=== PATIENT | female | born 1945 | race Caucasian/White ===

== ENCOUNTER 2018-12-31 12:26 | Emergency (ER) | payer OTHER ==
[~2018-12-31] VITALS: Ht 157.5 cm; Wt 54.4 kg
[~2018-12-31 12:26] MED LIST: ASPI-264 PO; GABA100C PO; HYDR4TAB21 PO; LOVA40TA72 PO; SUMA100T2 PO
[2018-12-31 15:11] VITALS: BP 194/95
[2018-12-31] MEDS ORDERED: MORPHINE SULFATE 4 MG/ML SYR/VIAL IV ONE (15:15)
== END 2018-12-31 15:37 | disposition short-term general hospital (02) ==
LOC: EDBD 12:26 → ER 12:31
DX: S02.609A Fracture of mandible, unspecified, initial encounter for closed fracture (principal); I48.91 Unspecified atrial fibrillation; E78.5 Hyperlipidemia, unspecified; Z90.710 Acquired absence of both cervix and uterus; Z88.6 Allergy status to analgesic agent; Z88.1 Allergy status to other antibiotic agents; Z88.8 Allergy status to other drugs, medicaments and biological substances; Z79.82 Long term (current) use of aspirin; Z79.899 Other long term (current) drug therapy; Z86.73 Personal history of transient ischemic attack (TIA), and cerebral infarction without residual deficits; Z90.49 Acquired absence of other specified parts of digestive tract; W18.39XA Other fall on same level, initial encounter; Y93.89 Activity, other specified; Y99.8 Other external cause status; Y92.89 Other specified places as the place of occurrence of the external cause
CPT/HCPCS: 70450; 70486; 72170; 93005; 96374; 99285; J2270

== ENCOUNTER 2019-05-07 14:34 | Emergency (ER) | payer OTHER ==
[~2019-05-07] VITALS: Ht 165.1 cm; Wt 52.2 kg
[2019-05-07 15:02] VITALS: BP 136/81
[2019-05-07] MEDS ORDERED: SODIUM CHLORIDE 0.9% 500 ML IVB ONE (15:18)
[2019-05-07 17:38] LABS: Basophils # (auto) 0.1 uL; Basophils % (auto) 1.1 % (0.0-2.0); Eosinophils # (auto) 0.1 uL; Eosinophils % (auto) 1.4 % (0.0-7.0); Hematocrit 44.7 % (36.0-46.0); Hemoglobin 14.3 g/dL (12.2-16.2); Lymphocytes # (auto) 1.6 uL; Lymphocytes % (auto) 18.8 % (10.0-50.0); Mean Corpuscular Hemoglobin 28.4 pg (28.0-32.0); Mean Corpuscular Volume 88.7 fL (80.0-100.0); Monocytes # (auto) 0.6 uL; Monocytes % (auto) 6.9 % (0.0-12.0); Neutrophils % (auto) 71.8 % (37.0-80.0); Nucleated Red Blood Cells % 0.1 %; Platelet Count (auto) 262 10^3/uL (140-450); Red Blood Cells 5.04 10^6/uL (4.0-5.20); Red Cell Distribution Width 15.7 % (11.8-14.3); White Blood Cell 8.4 10^3/uL (4.4-10.8)
[2019-05-07 18:01] LABS: Albumin 3.3 g/dL (3.4-5.0); BUN/Creatinine Ratio 19.7; Calcium 8.5 mg/dL (8.5-10.1); Potassium 3.8 mmol/L (3.5-5.1)
[2019-05-07 18:04] LABS: Bilirubin, Total 0.3 mg/dL (0.2-1.0); Total Protein 7.2 g/dL (6.4-8.2)
== END 2019-05-07 21:50 | disposition left against medical advice (07) ==
LOC: EDUNIT# 14:34 → ER 14:34 → EDBD 14:34 → ER 21:48
DX: R10.31 Right lower quadrant pain (principal); R19.7 Diarrhea, unspecified; E78.5 Hyperlipidemia, unspecified; Z90.49 Acquired absence of other specified parts of digestive tract; Z90.710 Acquired absence of both cervix and uterus; Z87.440 Personal history of urinary (tract) infections; Z86.73 Personal history of transient ischemic attack (TIA), and cerebral infarction without residual deficits
CPT/HCPCS: 36415; 74176; 80053; 83690; 85025; 93005; 96360; 99284; J7030

== ENCOUNTER 2019-06-07 09:38 | Inpatient (IN) | payer OTHER ==
[~2019-06-07] VITALS: Ht 180.3 cm; Wt 56.0 kg
[~2019-06-07 09:38] MED LIST changes: +GABA-339 PO; -GABA100C PO; -HYDR4TAB21 PO; +LEVO500T21 PO; +MECL-87 PO; +METR500T PO; +OXYB5TAB61
[2019-06-07] MEDS ORDERED: MORPHINE SULFATE 4 MG/ML SYR/VIAL IV ONE (11:00)
[2019-06-07] MEDS ORDERED: ONDANSETRON HCL 4 MG/2 ML VIAL IV ONE (11:00)
[2019-06-07 11:11] LABS: Basophils # (auto) 0 uL; Basophils % (auto) 0.7 % (0.0-2.0); Eosinophils # (auto) 0.1 uL; Eosinophils % (auto) 0.9 % (0.0-7.0); Hemoglobin 13.7 g/dL (12.2-16.2); Lymphocytes # (auto) 1.1 uL; Lymphocytes % (auto) 15.1 % (10.0-50.0); Mean Corpuscular Hemoglobin 28.8 pg (28.0-32.0); Mean Corpuscular Hgb Conc. 32.6 g/dL (32.0-36.0); Mean Corpuscular Volume 88.4 fL (80.0-100.0); Monocytes # (auto) 0.6 uL; Monocytes % (auto) 8.1 % (0.0-12.0); Neutrophils # (auto) 5.5 uL; Neutrophils % (auto) 75.2 % (37.0-80.0); Platelet Count (auto) 215 10^3/uL (140-450); Red Blood Cells 4.75 10^6/uL (4.0-5.20); Red Cell Distribution Width 14.5 % (11.8-14.3); White Blood Cell 7.3 10^3/uL (4.4-10.8)
[2019-06-07 11:28] LABS: Albumin 3.1 g/dL (3.4-5.0); Anion Gap 7 (5-15); Blood Urea Nitrogen 10 mg/dL (7-18); Calcium 8.9 mg/dL (8.5-10.1); Carbon Dioxide 23 mmol/L (21-32); Chloride 114 mmol/L (98-107); Potassium 3.8 mmol/L (3.5-5.1); Sodium 144 mmol/L (136-145)
[2019-06-07 11:36] LABS: Alanine Aminotransferase 16 U/L (13-56); Alkaline Phosphatase 64 U/L (45-117); Aspartate Aminotransferase 15 U/L (15-37); BUN/Creatinine Ratio 14.3; Bilirubin, Total 0.6 mg/dL (0.2-1.0); GFR African American 105 mL/min; GFR Non-African American 87 mL/min; Glucose 101 mg/dL (74-106); Total Protein 6.5 g/dL (6.4-8.2)
[2019-06-07 12:43] LABS: INR 1.15 (0.9-1.15)
[2019-06-07] MEDS ORDERED: metroNIDAZOLE 500 MG TAB PO ONE (17:00)
[2019-06-07] MEDS ORDERED: SOD CHL 0.45% 1,000 ML IV ONE (18:30)
[2019-06-07] MEDS ORDERED: NITROGLYCERIN 0.4 MG SL TAB SL PRN (18:30)
[2019-06-07] MEDS ORDERED: MORPHINE SULF INJ 2 MG/ML SYRINGE 1ML IV PRN ×4 (18:30→18:45)
[2019-06-07 20:23] VITALS: BP 154/70
--- NOTE | 2019-06-07 20:23 | NUR ---
MS admit from ER WILBERT,HUMBERTO Mack admitted to tele/MS after SBAR received. Patient oriented to GABE MCNEIL RN primary RN, unit, room, bed, and unit policies regarding patient care and visiting hours. No s/s of distress or SOB noted upon arrival. Patient denies pain at this time. Bed locked and left in the lowest position with the side rails up x2. Call light left within reach. Patient weighed by bedscale and encouraged to call if they need something. All questions and concerns addressed, patient verbalized understanding. Will continue to monitor q 1hr and PRN.
[2019-06-07 22:28] VITALS: BP 112/64
[2019-06-07] MEDS: metroNIDAZOLE 500MG/100ML 100 ML IV SCH (22:44)
[2019-06-07] MEDS: traMADol HCL 50 MG TAB PO PRN (22:54)
[2019-06-08 04:38] VITALS: BP 109/62
[2019-06-08] MEDS: metroNIDAZOLE 500MG/100ML 100 ML IV SCH ×3 (06:24→22:04)
[2019-06-08] MEDS: GABAPENTIN 300 MG CAP PO SCH ×3 (06:24→22:05)
--- NOTE | 2019-06-08 08:00 | NUR ---
Opening Shift Note Assumed care of patient, awake, alert and oriented. No S/S of distress/SOB or pain. Bed in lowest/locked position, bed rails up x2. Instructed on POC and to call for assist PRN, will continue to monitor for changes Q1hr and PRN.
[2019-06-08 09:00] VITALS: BP 118/67
[2019-06-08] MEDS: PANTOPRAZOLE 40 MG TAB PO SCH (09:04)
[2019-06-08] MEDS: cefTRIAXone 1GM/50ML D5W 50 ML IV SCH (09:04)
--- NOTE | 2019-06-08 11:42 | NUR ---
ARCENIO KENT RE: PATIENT HOME MEDICATION FOR MIGRAINES. LEFT MESSAGE AWAITING RETURN PHONE CALL
[2019-06-08 13:00] VITALS: BP 120/72
[2019-06-08] MEDS ORDERED: POLYETHYLENE GLYCOL 17 GM PWDR PO ONE (13:00)
[2019-06-08] MEDS ORDERED: SUMAtriptan SUCCINATE 25 MG TAB PO PRN (13:00)
[2019-06-08 17:00] VITALS: BP 141/77
--- NOTE | 2019-06-08 19:23 | NUR ---
Opening Shift Note Report received from day shift RN. Assumed care of patient, awake sitting in bed and A&O x4. No S/S of distress/SOB noted and denies pain at this time. Bed locked and in the lowest position with side rails up x2 and call light left within reach. Instructed on POC and to call for assist PRN, will continue to monitor for changes Q1hr and PRN.
--- NOTE | 2019-06-08 20:50 | NUR ---
IV removal IV TO RIGHT FOREARM DC'd with clean sterile technique, catheter fully intact. Pressure dressing applied to site. Patient tolerated well. IV insertion NEW IV access obtained, via clean sterile technique by inserting 20 gauge catheter at THE LEFT WRIST after 1 attempt(s). IV secured properly. No trauma to site. Patient tolerated well.
[2019-06-08 22:00] VITALS: BP 145/75
[2019-06-08] MEDS: DOCUSATE SOD 100 MG CAP PO SCH (22:00)
[2019-06-09 04:30] VITALS: BP 113/64
[2019-06-09] MEDS: metroNIDAZOLE 500MG/100ML 100 ML IV SCH ×2 (06:32→13:46)
[2019-06-09] MEDS: GABAPENTIN 300 MG CAP PO SCH ×2 (06:33→13:46)
[2019-06-09 06:48] LABS: Basophils # (auto) 0 uL; Basophils % (auto) 0.7 % (0.0-2.0); Eosinophils # (auto) 0.2 uL; Eosinophils % (auto) 3.2 % (0.0-7.0); Hematocrit 38.5 % (36.0-46.0); Hemoglobin 12.5 g/dL (12.2-16.2); Lymphocytes # (auto) 1.2 uL; Lymphocytes % (auto) 22.2 % (10.0-50.0); Mean Corpuscular Hemoglobin 28.5 pg (28.0-32.0); Mean Corpuscular Hgb Conc. 32.4 g/dL (32.0-36.0); Mean Corpuscular Volume 88.1 fL (80.0-100.0); Monocytes # (auto) 0.5 uL; Monocytes % (auto) 9.5 % (0.0-12.0); Neutrophils # (auto) 3.3 uL; Neutrophils % (auto) 64.4 % (37.0-80.0); Platelet Count (auto) 197 10^3/uL (140-450); Red Blood Cells 4.37 10^6/uL (4.0-5.20); Red Cell Distribution Width 14.1 % (11.8-14.3); White Blood Cell 5.2 10^3/uL (4.4-10.8)
[2019-06-09 07:06] LABS: Calcium 8.1 mg/dL (8.5-10.1); Potassium 3.4 mmol/L (3.5-5.1)
[2019-06-09 07:09] LABS: BUN/Creatinine Ratio 10.3
[2019-06-09 09:00] VITALS: BP 134/75
[2019-06-09] MEDS: cefTRIAXone 1GM/50ML D5W 50 ML IV SCH (09:13)
[2019-06-09] MEDS: DOCUSATE SOD 100 MG CAP PO SCH (09:13)
[2019-06-09] MEDS: PANTOPRAZOLE 40 MG TAB PO SCH (09:14)
--- NOTE | 2019-06-09 10:12 | NUR ---
I faxed SNF placement order to [facility].
--- NOTE | 2019-06-09 12:54 | NUR ---
Discharge planning per consult, patient has orders for a home health evaluation. Referral faxed to [facility] manager case [facility]-[phone], and to [facility] [phone].
[2019-06-09 13:00] VITALS: BP 163/70
--- NOTE | 2019-06-09 14:17 | NUR ---
I called [facility] Service Representative Daily [phone] and left message to discuss discharge planning/SNF order.
[2019-06-09] MEDS ORDERED: LIDOCAINE 5% TOPICAL PATCH TOP SCH (14:25)
--- NOTE | 2019-06-09 14:42 | NUR ---
I received a call from [facility] letting me know that patient has been accepted at [facility], room 212 bed 2-Dr. Sanchez accepting physician. Nurse to call report to [phone]. Per Daily patient has no non-emergent transportation benefits.
[2019-06-09 17:00] VITALS: BP 161/99
--- NOTE | 2019-06-09 17:19 | NUR ---
Discharge planning per SS consult, patient has orders to dc to SNF. family preservation caseworker at [facility] has arranged for placement at [facility] [phone] into room [address] Sanchez. Patient does not have a covered transportation benefit under her insurance. Placed a call to Gladys Yang (listed as person to notify)at [phone], inquired about transportation and she advised that she can transport patient to the facility and will be here to pick her up at 6pm. Nurse Merino was advised of dc plan.
[2019-06-09] MEDS: traMADol HCL 50 MG TAB PO PRN (17:44)
--- NOTE | 2019-06-09 18:00 | NUR ---
Patient Refusing BP Medication Patient's BP 165/99 and refusing to take PRN BP medication. Patient states her BP will drop too low if she takes it, and "it will go down". Discussed PRN pain medication with patient to help decrease BP, patient verbalized understanding.
--- NOTE | 2019-06-09 18:30 | NUR ---
Transferred Patient is being transferred to [facility]. Patient is to follow up with accepting doctor at the receiving facility. Patient's transportation is friend Gladys. Gladys aware to take patient to [facility]. Called and gave report to receiving nursing Yana. Patient showed no signs of distress.
--- NOTE | 2019-06-10 15:49 | NUR ---
assessment re: ss consult Patient is a 73 year old female who is alert and oriented. Prior to admission patient lived home alone and needed assistance. Per patient she returned to ER due to abdominal pain. Patient informed me she has a scooter and fww for home use. Patients PCP is Dr Sanchez. Patient informed me she has a cleaning lady that comes in once a month for deep cleaning. Patient informed me she has a friend that comes in to take her shopping and to appointments. I informed patient she has a ss consult for SNF. Patient agrees to SNF. Flori maya will be satisfying order. I informed patient she has a right to speak to a social media editor regarding all care. I informed patient she has a right to participate in any and all discharge planning. Patient does not have a POA and advanced directive. I have offered patient information on POA and advanced directives. I informed the patient the advantages and benefits of having an Advanced Directive. Patient verbalized understanding and agreed to discharge plan. Addendum: 06/10/19 at 1551 by Michelle MEHTA Amended: Links added.
== END 2019-06-09 18:30 | DRG 392 ==
LOC: EDBD 09:38 → ER 09:38 → OVERFLOW 09:39 → WEST WING 20:26
PROVIDERS: ADMIT Nurse Practitioner Acute Care; ATTEND Internal Medicine
DX: K57.32 Diverticulitis of large intestine without perforation or abscess without bleeding (principal); E44.1 Mild protein-calorie malnutrition; Z68.1 Body mass index [BMI] 19.9 or less, adult; K29.70 Gastritis, unspecified, without bleeding; G62.9 Polyneuropathy, unspecified; G43.909 Migraine, unspecified, not intractable, without status migrainosus; E78.5 Hyperlipidemia, unspecified; M81.0 Age-related osteoporosis without current pathological fracture; Z96.642 Presence of left artificial hip joint; I48.91 Unspecified atrial fibrillation; Z90.710 Acquired absence of both cervix and uterus; I69.30 Unspecified sequelae of cerebral infarction; Z90.49 Acquired absence of other specified parts of digestive tract; Z88.6 Allergy status to analgesic agent; Z88.1 Allergy status to other antibiotic agents; Z88.5 Allergy status to narcotic agent; Z82.3 Family history of stroke; Z79.899 Other long term (current) drug therapy; Z79.82 Long term (current) use of aspirin; Z82.49 Family history of ischemic heart disease and other diseases of the circulatory system
CPT/HCPCS: 36415; 74176; 80048; 80053; 83735; 84484; 85025; 85610; 87081; 97116; 97163; 97530; G0378; J0696; J2405; J3490

== ENCOUNTER 2019-07-15 01:05 | Inpatient (IN) | payer OTHER ==
[~2019-07-15] VITALS: Ht 165.1 cm; Wt 53.0 kg
[2019-07-15] MEDS ORDERED: SODIUM CHLORIDE 0.9% 1,000 ML IVB ONE (01:58)
[2019-07-15] MEDS ORDERED: PANTOPRAZOLE 40 MG/10 ML VIAL INJ IV ONE (02:00)
[2019-07-15] MEDS ORDERED: ONDANSETRON HCL 4 MG/2 ML VIAL IV ONE (02:00)
[2019-07-15 02:08] LABS: Basophils # (auto) 0 uL; Basophils % (auto) 0.4 % (0.0-2.0); Eosinophils # (auto) 0 uL; Eosinophils % (auto) 0.4 % (0.0-7.0); Hematocrit 38.9 % (36.0-46.0); Hemoglobin 12.9 g/dL (12.2-16.2); Lymphocytes # (auto) 0.7 uL; Lymphocytes % (auto) 6.9 % (10.0-50.0); Mean Corpuscular Hemoglobin 28.6 pg (28.0-32.0); Mean Corpuscular Hgb Conc. 33.1 g/dL (32.0-36.0); Mean Corpuscular Volume 86.6 fL (80.0-100.0); Monocytes # (auto) 0.5 uL; Monocytes % (auto) 5.1 % (0.0-12.0); Neutrophils # (auto) 9.4 uL; Neutrophils % (auto) 87.2 % (37.0-80.0); Platelet Count (auto) 222 10^3/uL (140-450); Red Cell Distribution Width 14.1 % (11.8-14.3); White Blood Cell 10.8 10^3/uL (4.4-10.8)
[2019-07-15 02:24] LABS: Partial Thromboplastin Time 26.2 sec (23.64-32.05)
[2019-07-15 02:30] LABS: Alanine Aminotransferase 13 U/L (13-56); Amylase 51 U/L (25-115); Anion Gap 10 (5-15); Aspartate Aminotransferase 11 U/L (15-37); BUN/Creatinine Ratio 32.8; Blood Urea Nitrogen 21 mg/dL (7-18); Calcium 7.9 mg/dL (8.5-10.1); Carbon Dioxide 18 mmol/L (21-32); Chloride 116 mmol/L (98-107); GFR African American 117 mL/min; GFR Non-African American 96 mL/min; Glucose 136 mg/dL (74-106); Lipase 118 U/L (73-393); Potassium 4.1 mmol/L (3.5-5.1); Sodium 144 mmol/L (136-145)
[2019-07-15 02:33] LABS: Alkaline Phosphatase 77 U/L (45-117); Bilirubin, Total 0.2 mg/dL (0.2-1.0); Total Protein 5.9 g/dL (6.4-8.2)
[2019-07-15] MEDS ORDERED: NITROGLYCERIN 0.4 MG SL TAB SL PRN (09:15)
[2019-07-15] MEDS ORDERED: MORPHINE SULFATE 4 MG/ML SYR/VIAL IV PRN (09:15)
[2019-07-15] MEDS ORDERED: MORPHINE SULF INJ 2 MG/ML SYRINGE 1ML IV PRN (09:15)
[2019-07-15] MEDS: D5W/SOD CHLO 0.9% 1,000 ML IV SCH ×2 (09:51→22:35)
[2019-07-15] MEDS: PANTOPRAZOLE 40 MG/10 ML VIAL INJ IV SCH ×2 (09:53→21:29)
[2019-07-15] MEDS ORDERED: PATIENTS OWN MEDICATION (Lovastatin 1 TAB) PO SCH (10:00)
[2019-07-15] MEDS ORDERED: GOLYTELY 4L KIT PO ONE (14:45)
[2019-07-15 18:11] VITALS: BP 158/67
[2019-07-15 20:35] LABS: Urine Bacteria NONE SEEN /hpf (None Seen); Urine Blood Negative /uL (Negative); Urine Specific Gravity 1.007 (1.001-1.035); Urine WBC 15 /hpf (0 - 5)
[2019-07-15] MEDS: PRAVASTATIN SODIUM 20 MG TAB PO SCH (21:29)
[2019-07-15 22:00] VITALS: BP 166/76
[2019-07-15 22:08] VITALS: BP 156/66
[2019-07-15] MEDS: MORPHINE SULF INJ 2 MG/ML SYRINGE 1ML IV PRN (22:19)
[2019-07-15] MEDS ORDERED: traMADol HCL 50 MG TAB PO ONE (22:45)
[2019-07-16] VITALS: BP 143/75
[2019-07-16] MEDS ORDERED: cloNIDine HCL 0.1 MG TAB PO PRN (00:30)
[2019-07-16] MEDS: MORPHINE SULF INJ 2 MG/ML SYRINGE 1ML IV PRN ×3 (05:25→15:39)
[2019-07-16] MEDS ORDERED: GOLYTELY 4L KIT PO ONE (06:00)
[2019-07-16 06:24] VITALS: BP 131/64
[2019-07-16 06:44] LABS: Basophils # (auto) 0 uL; Basophils % (auto) 0.7 % (0.0-2.0); Eosinophils # (auto) 0.1 uL; Eosinophils % (auto) 2.3 % (0.0-7.0); Hematocrit 37.1 % (36.0-46.0); Hemoglobin 12.2 g/dL (12.2-16.2); Lymphocytes # (auto) 1.1 uL; Lymphocytes % (auto) 25.1 % (10.0-50.0); Mean Corpuscular Volume 87.8 fL (80.0-100.0); Monocytes # (auto) 0.4 uL; Monocytes % (auto) 9.9 % (0.0-12.0); Neutrophils # (auto) 2.8 uL; Nucleated Red Blood Cells % 0.1 %; Platelet Count (auto) 170 10^3/uL (140-450); Red Blood Cells 4.22 10^6/uL (4.0-5.20); Red Cell Distribution Width 14.2 % (11.8-14.3); White Blood Cell 4.5 10^3/uL (4.4-10.8)
[2019-07-16 07:03] LABS: Potassium 3.6 mmol/L (3.5-5.1)
[2019-07-16 07:06] LABS: BUN/Creatinine Ratio 16.4; Calcium 8.2 mg/dL (8.5-10.1)
[2019-07-16 09:00] VITALS: BP 145/84
[2019-07-16] MEDS ORDERED: diphenhdrAMINE HCL 50 MG/1 ML VL ONE (09:12)
[2019-07-16] MEDS ORDERED: LIDOCAINE VISCOUS 2% 15ML UD ONE (09:12)
[2019-07-16] MEDS ORDERED: SODIUM CHLORIDE LOCK 0 ML ONE (09:12)
[2019-07-16] MEDS ORDERED: fentaNYL CITRATE 100 MCG/2 ML VL ONE (09:12)
[2019-07-16] MEDS ORDERED: MIDAZOLAM HCL 5 MG/ML-1ML VIAL ONE (09:12)
[2019-07-16] MEDS: PANTOPRAZOLE 40 MG/10 ML VIAL INJ IV SCH ×2 (09:37→20:32)
[2019-07-16] MEDS: D5W/SOD CHLO 0.9% 1,000 ML IV SCH (11:56)
[2019-07-16 13:00] VITALS: BP 171/70
[2019-07-16] MEDS: DOXYCYCLINE 100MG/250ML 250 ML IV SCH (13:26)
[2019-07-16] MEDS ORDERED: PROMETHAZINE HCL 25 MG/ML 1ML IV PRN (16:00)
[2019-07-16 17:00] VITALS: BP 178/65
[2019-07-16] MEDS ORDERED: SUMAtriptan SUCCINATE 25 MG TAB PO PRN (20:30)
[2019-07-16] MEDS: PRAVASTATIN SODIUM 20 MG TAB PO SCH (20:54)
[2019-07-16 22:00] VITALS: BP 159/61
[2019-07-17] MEDS: DOXYCYCLINE 100MG/250ML 250 ML IV SCH ×2 (00:15→12:04)
[2019-07-17] MEDS: D5W/SOD CHLO 0.9% 1,000 ML IV SCH (01:15)
[2019-07-17] MEDS ORDERED: NALOXONE HCL 0.4 MG/ML VIAL ONE (08:41)
[2019-07-17] MEDS ORDERED: SODIUM CHLORIDE LOCK 10 ML ONE (08:41)
[2019-07-17] MEDS ORDERED: FLUMAZENIL 0.1 MG/ML INJ 10ML MDV IV ONE (08:41)
[2019-07-17] MEDS ORDERED: LIDOCAINE VISCOUS 2% 15ML UD ONE (08:42)
[2019-07-17] MEDS ORDERED: diphenhdrAMINE HCL 50 MG/1 ML VL ONE (08:43)
[2019-07-17 09:00] VITALS: BP 163/73
[2019-07-17] MEDS: fentaNYL CITRATE 100 MCG/2 ML VL ONE ×4 (09:14→09:26)
[2019-07-17] MEDS: MIDAZOLAM HCL 5 MG/ML-1ML VIAL ONE ×4 (09:14→09:26)
[2019-07-17] MEDS: PANTOPRAZOLE 40 MG/10 ML VIAL INJ IV SCH (11:17)
[2019-07-17 13:34] VITALS: BP 122/76
[2019-07-17 16:54] VITALS: BP 150/75
[2019-07-17] MEDS ORDERED: DOXY-346 PO (17:53)
== END 2019-07-17 21:45 | disposition home or self-care (01) | DRG 378 ==
LOC: ER 01:07 → TELE 01:08 → TELE-WESTW 17:49
PROVIDERS: ADMIT Nurse Practitioner Acute Care; ATTEND Internal Medicine
PROC: 0DJ08ZZ Inspection of Upper Intestinal Tract, Via Natural or Artificial Opening Endoscopic (ICD-10-PCS; principal; 2019-07-17 09:10)
PROC: 0DBM8ZX Excision of Descending Colon, Via Natural or Artificial Opening Endoscopic, Diagnostic (ICD-10-PCS; 2019-07-17 09:10)
DX: K57.33 Diverticulitis of large intestine without perforation or abscess with bleeding (principal); E44.0 Moderate protein-calorie malnutrition; Z68.1 Body mass index [BMI] 19.9 or less, adult; J98.11 Atelectasis; I69.354 Hemiplegia and hemiparesis following cerebral infarction affecting left non-dominant side; I48.91 Unspecified atrial fibrillation; G89.29 Other chronic pain; E78.5 Hyperlipidemia, unspecified; K44.9 Diaphragmatic hernia without obstruction or gangrene; K63.5 Polyp of colon; M19.90 Unspecified osteoarthritis, unspecified site; N20.0 Calculus of kidney; Z96.649 Presence of unspecified artificial hip joint; K57.31 Diverticulosis of large intestine without perforation or abscess with bleeding; T39.395A Adverse effect of other nonsteroidal anti-inflammatory drugs [NSAID], initial encounter; Y92.89 Other specified places as the place of occurrence of the external cause; Z88.1 Allergy status to other antibiotic agents; Z88.5 Allergy status to narcotic agent; Z88.8 Allergy status to other drugs, medicaments and biological substances; Z82.49 Family history of ischemic heart disease and other diseases of the circulatory system; Z82.3 Family history of stroke; Z90.49 Acquired absence of other specified parts of digestive tract; Z90.710 Acquired absence of both cervix and uterus; Z79.82 Long term (current) use of aspirin
CPT/HCPCS: 36415; 71045; 74176; 80048; 80053; 81001; 82150; 83605; 83690; 83735; 85025; 85610; 85730; 87045; 87081; 87427; 93005; 96361; 96374; 96375; C9113; G0378; J2250; J2405; J3490

== ENCOUNTER 2019-11-19 14:01 | Inpatient (IN) | payer OTHER ==
[~2019-11-19] VITALS: Ht 165.1 cm; Wt 56.1 kg
[~2019-11-19 14:01] MED LIST changes: +DOXY-346 PO; -LEVO500T21 PO; -MECL-87 PO; +MECL25TA18 PO
[2019-11-19] MEDS ORDERED: SODIUM CHLORIDE 0.9% 1,000 ML IVB ONE (14:27)
[2019-11-19 15:02] LABS: Basophils # (auto) 0.1 10 ^3/uL (0-0.2); Basophils % (auto) 1.1 % (0.0-2.0); Eosinophils # (auto) 0.1 10 ^3/uL (0-0.8); Hematocrit 40.9 % (36.0-46.0); Hemoglobin 13.3 g/dL (12.2-16.2); Lymphocytes # (auto) 1.4 10 ^3/uL (0.4-5.4); Lymphocytes % (auto) 17.6 % (10.0-50.0); Mean Corpuscular Hemoglobin 27.5 pg (28.0-32.0); Mean Corpuscular Hgb Conc. 32.4 g/dL (32.0-36.0); Mean Corpuscular Volume 84.9 fL (80.0-100.0); Monocytes # (auto) 0.7 10 ^3/uL (0-1.3); Monocytes % (auto) 9.2 % (0.0-12.0); Neutrophils # (auto) 5.8 10 ^3/uL (1.6-8.6); Neutrophils % (auto) 71.1 % (37.0-80.0); Platelet Count (auto) 282 10^3/uL (140-450); Red Blood Cells 4.82 10^6/uL (4.0-5.20); Red Cell Distribution Width 15.6 % (11.8-14.3); White Blood Cell 8.1 10^3/uL (4.4-10.8)
[2019-11-19 15:14] LABS: INR 1.05 (0.9-1.15); Partial Thromboplastin Time 26.9 sec (23.64-32.05)
[2019-11-19 15:22] LABS: Albumin 3.2 g/dL (3.4-5.0); Anion Gap 6 (5-15); Blood Urea Nitrogen 29 mg/dL (7-18); Calcium 8.4 mg/dL (8.5-10.1); Carbon Dioxide 22 mmol/L (21-32); Chloride 113 mmol/L (98-107); Glucose 96 mg/dL (74-106); Potassium 3.6 mmol/L (3.5-5.1); Sodium 141 mmol/L (136-145)
[2019-11-19 15:28] LABS: Alanine Aminotransferase 17 U/L (13-56); Alkaline Phosphatase 88 U/L (45-117); Aspartate Aminotransferase 7 U/L (15-37); BUN/Creatinine Ratio 39.2; Bilirubin, Total 0.7 mg/dL (0.2-1.0); GFR African American 98 mL/min; GFR Non-African American 81 mL/min; Total Protein 6.6 g/dL (6.4-8.2)
[2019-11-19 17:56] LABS: Urine Bacteria FEW /hpf (None Seen); Urine Blood 2+ /uL (Negative); Urine Hyaline Cast FEW /lpf (0 - 2); Urine Specific Gravity 1.011 (1.001-1.035); Urine WBC 17 /hpf (0 - 5)
[2019-11-19] MEDS ORDERED: TEMAZEPAM 15 MG CAP PO PRN (21:45)
[2019-11-19] MEDS ORDERED: cefTRIAXone 1GM/50ML D5W 50 ML IV ONE (21:45)
[2019-11-19] MEDS ORDERED: cloNIDine HCL 0.1 MG TAB PO PRN (21:45)
[2019-11-19] MEDS ORDERED: ONDANSETRON HCL 4 MG/2 ML VIAL IV PRN (21:45)
[2019-11-19] MEDS ORDERED: traMADol HCL 50 MG TAB PO PRN (22:00)
[2019-11-19] MEDS ORDERED: FAMOTIDINE 20 MG TAB PO SCH (22:00)
[2019-11-19] MEDS: GABAPENTIN 300 MG CAP PO SCH (23:01)
[2019-11-19] MEDS: ATORVASTATIN 20 MG TAB PO SCH (23:01)
[2019-11-19] MEDS: FAMOTIDINE 20 MG TAB PO SCH (23:01)
--- NOTE | 2019-11-19 23:45 | NUR ---
MS admit from [facility] ATK[facility],HUMBERTO Mack admitted to MS. Patient oriented to Codi Cornelius, primary RN, unit, room, bed, and unit policies regarding patient care and visiting hours. Patient weighed by bed scale and encouraged to call if they need something. All questions and concerns addressed, patient verbalized understanding. Note: Patient is awake and alertx4, came to hospital s/p fall at home. Bed alarm placed on, call light placed within reach.
--- NOTE | 2019-11-20 00:31 | NUR ---
PAIN PATIENT REQUESTING TRAMADOL ORDERED FOR PAIN. PATIENT REPORTING PAIN IN HER LEFT HIP RATED 6/10.
[2019-11-20 05:00] VITALS: BP 159/86
[2019-11-20] MEDS ORDERED: DICL50TA4 PO (06:11)
[2019-11-20] MEDS ORDERED: PANT40TA2 PO (06:11)
[2019-11-20 06:28] LABS: Basophils # (auto) 0.1 10 ^3/uL (0-0.2); Basophils % (auto) 0.9 % (0.0-2.0); Eosinophils # (auto) 0.1 10 ^3/uL (0-0.8); Eosinophils % (auto) 1.6 % (0.0-7.0); Hematocrit 42.4 % (36.0-46.0); Hemoglobin 13.8 g/dL (12.2-16.2); Lymphocytes # (auto) 1.3 10 ^3/uL (0.4-5.4); Lymphocytes % (auto) 18.7 % (10.0-50.0); Mean Corpuscular Hgb Conc. 32.6 g/dL (32.0-36.0); Mean Corpuscular Volume 85.9 fL (80.0-100.0); Monocytes # (auto) 0.7 10 ^3/uL (0-1.3); Monocytes % (auto) 9.2 % (0.0-12.0); Neutrophils % (auto) 69.6 % (37.0-80.0); Nucleated Red Blood Cells % 0.1 %; Platelet Count (auto) 260 10^3/uL (140-450); Red Blood Cells 4.93 10^6/uL (4.0-5.20); Red Cell Distribution Width 15.1 % (11.8-14.3); White Blood Cell 7.2 10^3/uL (4.4-10.8)
[2019-11-20 06:51] LABS: Calcium 8.5 mg/dL (8.5-10.1); Potassium 3.9 mmol/L (3.5-5.1)
[2019-11-20 06:54] LABS: BUN/Creatinine Ratio 32.4
--- NOTE | 2019-11-20 08:00 | NUR ---
Opening Shift Note Assumed care of patient, awake, alert and oriented X4. No S/S of distress/SOB or pain. IV to right forearm, 18 gauge, patent and saline locked. Left hand is contracted, due to previous stroke. Instructed on POC and to call for assist PRN, verbalized understanding. Bed locked, in lowest position, call light within reach, will continue to monitor for changes Q1hr and PRN.
[2019-11-20 09:00] VITALS: BP 162/98
[2019-11-20] MEDS: cefTRIAXone 1GM/50ML D5W 50 ML IV SCH (09:12)
[2019-11-20] MEDS: ASPirin 81 mg TAB PO SCH (10:17)
[2019-11-20] MEDS: FAMOTIDINE 20 MG TAB PO SCH (10:18)
[2019-11-20] MEDS: GABAPENTIN 300 MG CAP PO SCH ×2 (10:18→23:07)
[2019-11-20] MEDS: ENOXAPARIN SOD 40 MG/0.4 ML SYRINGE SC SCH (10:19)
--- NOTE | 2019-11-20 12:30 | NUR ---
ROUNDS Dr Ramona Bui at bedside for rounds, new orders received and followed through. Patient updated on plan of care, verbalized understanding.
[2019-11-20 13:00] VITALS: BP 153/79
[2019-11-20 16:46] VITALS: BP 111/73
[2019-11-20] MEDS ORDERED: ACE325T PO (18:13)
[2019-11-20 18:29] VITALS: BP 111/73
--- NOTE | 2019-11-20 18:50 | NUR ---
DISCHARGE Informed patient she is to be discharged home with home health. Patient verbalized she does not feel safe being discharged this late. Will endorse to night nurse.
--- NOTE | 2019-11-20 19:39 | NUR ---
Care endorsed to MICHAELA Walker, night nurse.
--- NOTE | 2019-11-20 21:00 | NUR ---
MD REYES CONTACTED INFORMED MD REYES THAT PATIENT IS REFUSING DISCHARGE. PATIENT STATES THAT THEY ARE NOT READY TO LEAVE YET. PATIENT HAS NO TRANSPORT OR ANY HELP AT HOME. PATIENT STATES THAT THEY CANNOT MAKE IT FROM THE [place] TO THEIR APARTMENT. PER MD REYES, DISCHARGE WILL NOT BE HELD. MD KENT CONTACTED AND INFORMED OF CONTINUING DC.
--- NOTE | 2019-11-20 21:25 | NUR ---
SPOKE WITH [employer] BATTERY ASSEMBLER AND AND CHARGE. PATIENT IS UNABLE TO CARE FOR SELF AND REQUESTING TO HOLD DC. SOCIAL SERVICE CONSULT PLACED AND NOT YET SEEN. UNABLE TO TRANSPORT PATIENT AT THIS TIME. WILL CONTINUE TO MONITOR.
--- NOTE | 2019-11-20 21:55 | NUR ---
Called MD regarding 2x bloody stools New orders received per Dr. Ojeda. Orders read back and confirmed. Will continue to monitor patient Q1 and PRN.
[2019-11-20 22:10] VITALS: BP 137/77
[2019-11-20] MEDS: ATORVASTATIN 20 MG TAB PO SCH (23:07)
[2019-11-20 23:29] LABS: Hematocrit 39.1 % (36.0-46.0); Hemoglobin 12.6 g/dL (12.2-16.2)
[2019-11-21 05:00] VITALS: BP 129/64
--- NOTE | 2019-11-21 07:13 | NUR ---
Closing Shift Note Endorsed care to dayshift RN. No s/s of distress or SOB. Patient responsive to name and touch.
[2019-11-21 07:45] LABS: Hematocrit 40.8 % (36.0-46.0); Hemoglobin 12.9 g/dL (12.2-16.2)
[2019-11-21 08:00] VITALS: BP 153/99
[2019-11-21] MEDS: ASPirin 81 mg TAB PO SCH (08:29)
[2019-11-21] MEDS: ENOXAPARIN SOD 40 MG/0.4 ML SYRINGE SC SCH (08:30)
[2019-11-21 09:00] VITALS: BP 153/99
[2019-11-21] MEDS: cefTRIAXone 1GM/50ML D5W 50 ML IV SCH (09:31)
[2019-11-21] MEDS: FAMOTIDINE 20 MG TAB PO SCH (09:32)
[2019-11-21] MEDS: GABAPENTIN 300 MG CAP PO SCH (09:32)
[2019-11-21] MEDS ORDERED: PANTOPRAZOLE 40 MG/10 ML VIAL INJ IV SCH (10:00)
--- NOTE | 2019-11-21 10:24 | NUR ---
SS consult for home health. Contacted [facility] ([phone]), contracted home health agency for pt's medical group, and faxed clinical information regarding order. Pt has previously been on service with agency and has been accepted to be seen once medically stable for discharge. Presently pt is still admitted due to bloody stools and a pending GI consult. Once cleared pt can be discharged home and [facility] will follow up at that time.
--- NOTE | 2019-11-21 10:30 | NUR ---
Hold PT today per nursing.
[2019-11-21 12:49] LABS: Hematocrit 41.2 % (36.0-46.0); Hemoglobin 13.3 g/dL (12.2-16.2)
[2019-11-21 13:00] VITALS: BP 152/80
--- NOTE | 2019-11-21 13:30 | NUR ---
assessment Patient is a 74 year old female who is alert and oriented. Patients cognitive abilities are intact. Prior to admission patient lived home alone and functioned independently. Patient informed me she is able to care for her own ADLs. Per patient she will return home to her prior living arrangements post discharge. Patient will need transport home. [employer] sample case porter is working on transport now. Patient has a scooter, and fww for home use. Patients PCP is Dr Sanchez. Patient feels safe returning home on discharge. I informed patient of her consult of multiple falls. Patient informed me she had hip replacement 12 years ago and her hip gives out about twice per year since then. Patient informed me she is following up with her PCP Dr Sanchez for referral to Ortho. I informed patient she has a right to speak to a social sciences department chair regarding all care. I informed patient she has a right to participate in any and all discharge planning. Patient has a POA and advanced directive. Patient verbalized understanding and agreed to discharge plan. Addendum: 11/21/19 at 1335 by Michelle MEHTA Amended: Links added.
--- NOTE | 2019-11-21 14:56 | NUR ---
I called [facility] [phone] extension [phone] and spoke with Reinaldo regarding this patient needing transportation home today. Per Reinaldo, reference number for this call is [phone] said a rep will call the nurse's station within the next 3 hours to give us an ETA-I relayed this information to nurse Winter.
[2019-11-21 18:02] LABS: Hematocrit 42.6 % (36.0-46.0); Hemoglobin 13.4 g/dL (12.2-16.2)
--- NOTE | 2019-11-21 18:45 | NUR ---
WAS SUPPOSED TO RECEIVE A CALL BACK FROM [employer] IN REGARDS TO THE PICK-UP TIME FOR THE PATIENT. I CALLED [employer] AND WAS HELPED BY LESA WHO INFORMED ME THAT THE INDIVIDUAL THAT WAS SUPPOSED TO SET UP TRANSPORTATION HAD NOT COMPLETED THE PROCESS. SHE INFORMED ME THAT SHE WAS GOING TO PRIORITIZE OBTAINING THE TRANSPORTATION HERSELF AND CALL ME BACK WITHIN AN HOUR. I INFORMED HER THAT I WOULD ENDORSE THIS TO THE NIGHT NURSE RELIEVING ME IF I LEFT BEFORE HER CALL.
--- NOTE | 2019-11-21 19:26 | NUR ---
PATIENT DISCHARGED HOME WITH [facility]SPORT[facility]. ALL IV ACCESS DISCONTINUED. PATIENT NON-TELEMETRY. ALL DISCHARGE PAPERWORK SIGNED. ALL DISCHARGE INSTRUCTIONS GIVEN.
== END 2019-11-21 20:00 | disposition home health service (06) | DRG 537 ==
LOC: ER 14:01 → EDBD 14:01 → OVERFLOW 14:02 → WEST WING 23:29
PROVIDERS: ADMIT Nurse Practitioner; ATTEND Internal Medicine
DX: S73.102A Unspecified sprain of left hip, initial encounter (principal); N39.0 Urinary tract infection, site not specified; I10 Essential (primary) hypertension; Z96.642 Presence of left artificial hip joint; G43.909 Migraine, unspecified, not intractable, without status migrainosus; W19.XXXA Unspecified fall, initial encounter; E78.5 Hyperlipidemia, unspecified; M19.90 Unspecified osteoarthritis, unspecified site; G62.9 Polyneuropathy, unspecified; Z88.8 Allergy status to other drugs, medicaments and biological substances; Z88.1 Allergy status to other antibiotic agents; Z79.899 Other long term (current) drug therapy; Z79.82 Long term (current) use of aspirin; Z90.49 Acquired absence of other specified parts of digestive tract; Z90.710 Acquired absence of both cervix and uterus; Z82.3 Family history of stroke; Z82.49 Family history of ischemic heart disease and other diseases of the circulatory system; Z88.5 Allergy status to narcotic agent; Y93.89 Activity, other specified; Y92.89 Other specified places as the place of occurrence of the external cause; Y99.8 Other external cause status
CPT/HCPCS: 36415; 51702; 71045; 71250; 72192; 80048; 80053; 81001; 82270; 83735; 84484; 85014; 85018; 85025; 85610; 85730; 86850; 86900; 86901; 93005; 96361; 96365; 97163; C9113; G0378; J0696

== ENCOUNTER 2019-11-25 00:45 | Inpatient (IN) | payer OTHER ==
[~2019-11-25] VITALS: Ht 162.6 cm; Wt 54.5 kg
[~2019-11-25 00:45] MED LIST changes: +ACE325T PO; -ASPI-264 PO; +DICL50TA4 PO; -DOXY-346 PO; -METR500T PO; +PANT40TA2 PO
[2019-11-25 01:59] LABS: Basophils # (auto) 0.1 10 ^3/uL (0-0.2); Basophils % (auto) 0.4 % (0.0-2.0); Eosinophils # (auto) 0 10 ^3/uL (0-0.8); Eosinophils % (auto) 0.1 % (0.0-7.0); Hematocrit 32.1 % (36.0-46.0); Hemoglobin 10.4 g/dL (12.2-16.2); Lymphocytes # (auto) 0.8 10 ^3/uL (0.4-5.4); Lymphocytes % (auto) 5.4 % (10.0-50.0); Mean Corpuscular Hemoglobin 28.2 pg (28.0-32.0); Mean Corpuscular Hgb Conc. 32.4 g/dL (32.0-36.0); Mean Corpuscular Volume 86.9 fL (80.0-100.0); Monocytes # (auto) 0.9 10 ^3/uL (0-1.3); Monocytes % (auto) 6.1 % (0.0-12.0); Neutrophils # (auto) 12.7 10 ^3/uL (1.6-8.6); Platelet Count (auto) 255 10^3/uL (140-450); Red Cell Distribution Width 15.7 % (11.8-14.3); White Blood Cell 14.4 10^3/uL (4.4-10.8)
[2019-11-25 02:21] LABS: BUN/Creatinine Ratio 22.4; Calcium 8.6 mg/dL (8.5-10.1)
[2019-11-25 02:24] LABS: Bilirubin, Total 0.5 mg/dL (0.2-1.0); Lactic Acid w/Reflex 2.3 mmol/L (0.4-2.0); Total Protein 6.3 g/dL (6.4-8.2)
[2019-11-25] MEDS ORDERED: ONDANSETRON HCL 4 MG/2 ML VIAL IV ONE (02:30)
[2019-11-25] MEDS ORDERED: PANTOPRAZOLE 40mg/50ML NS AE 50 ML IV ONE (02:30)
[2019-11-25] MEDS ORDERED: MORPHINE SULF INJ 2 MG/ML SYRINGE 1ML IV ONE (02:30)
[2019-11-25] MEDS ORDERED: PANTOPRAZOLE 40 MG/10 ML VIAL INJ IV ONE (02:30)
[2019-11-25] MEDS ORDERED: IOHEXOL 300 MG/ML 100ML BOTTLE IJ ONE (02:44)
[2019-11-25 04:21] LABS: INR 1.13 (0.9-1.15)
[2019-11-25 04:22] LABS: Partial Thromboplastin Time < 20.0 sec (23.64-32.05)
[2019-11-25] MEDS ORDERED: SUMATRIPTAN SUCCINATE 100 MG PO PRN (05:30)
[2019-11-25] MEDS ORDERED: DOCUSATE SOD 100 MG CAP PO PRN (05:30)
[2019-11-25] MEDS ORDERED: ONDANSETRON HCL 4 MG/2 ML VIAL IV PRN (05:30)
[2019-11-25] MEDS: metroNIDAZOLE 500MG/100ML 100 ML IV SCH ×3 (05:53→19:00)
[2019-11-25] MEDS: SODIUM CHLORIDE 0.9% 1,000 ML IV SCH ×2 (05:58→22:01)
[2019-11-25] MEDS ORDERED: PATIENTS OWN MEDICATION (Gabapentin 600 MG) PO SCH (06:00)
[2019-11-25 06:09] LABS: Basophils # (auto) 0 10 ^3/uL (0-0.2); Basophils % (auto) 0.4 % (0.0-2.0); Eosinophils # (auto) 0 10 ^3/uL (0-0.8); Eosinophils % (auto) 0.2 % (0.0-7.0); Hematocrit 28.5 % (36.0-46.0); Hemoglobin 9.3 g/dL (12.2-16.2); Lymphocytes # (auto) 1.1 10 ^3/uL (0.4-5.4); Lymphocytes % (auto) 9.9 % (10.0-50.0); Mean Corpuscular Hemoglobin 28.5 pg (28.0-32.0); Mean Corpuscular Hgb Conc. 32.8 g/dL (32.0-36.0); Mean Corpuscular Volume 86.7 fL (80.0-100.0); Monocytes # (auto) 0.8 10 ^3/uL (0-1.3); Monocytes % (auto) 6.7 % (0.0-12.0); Neutrophils # (auto) 9.3 10 ^3/uL (1.6-8.6); Neutrophils % (auto) 82.8 % (37.0-80.0); Platelet Count (auto) 224 10^3/uL (140-450); Red Blood Cells 3.28 10^6/uL (4.0-5.20); Red Cell Distribution Width 15.5 % (11.8-14.3); White Blood Cell 11.3 10^3/uL (4.4-10.8)
[2019-11-25 06:10] LABS: Urine Bacteria FEW /hpf (None Seen); Urine Blood 1+ /uL (Negative); Urine Budding Yeast FEW /hpf (None Seen); Urine Specific Gravity 1.034 (1.001-1.035); Urine WBC 24 /hpf (0 - 5)
[2019-11-25 06:24] LABS: Potassium 4.1 mmol/L (3.5-5.1)
[2019-11-25 06:30] LABS: BUN/Creatinine Ratio 20.6; Calcium 8.6 mg/dL (8.5-10.1)
[2019-11-25] MEDS ORDERED: SUMAtriptan SUCCINATE 25 MG TAB PO PRN (07:00)
[2019-11-25] MEDS ORDERED: PANTOPRAZOLE 40 MG TAB PO SCH (10:00)
[2019-11-25] MEDS: DICLOFENAC SODIUM 50 MG PO SCH ×2 (10:00→21:41)
[2019-11-25] MEDS ORDERED: PATIENTS OWN MEDICATION (Lovastatin 1 TAB) PO SCH (10:00)
[2019-11-25] MEDS ORDERED: OXYBUTYNIN CHL 5 MG TAB PO SCH (10:00)
[2019-11-25] MEDS: PANTOPRAZOLE 40 MG/10 ML VIAL INJ IV SCH ×2 (10:45→21:40)
[2019-11-25] MEDS ORDERED: OXYB5TAB61 PO (12:41)
[2019-11-25] MEDS: OXYBUTYNIN CHL 5 MG TAB PO SCH (13:03)
[2019-11-25] MEDS: GABAPENTIN 300 MG CAP PO SCH ×2 (14:17→21:40)
--- NOTE | 2019-11-25 17:15 | NUR ---
Received patient to the floor. Patient A&O x3. Patient shows no signs of distress at this time. Bed in lowest position, side rails up x2, and the call light is within reach.
[2019-11-25 17:55] VITALS: BP 125/56
--- NOTE | 2019-11-25 19:00 | NUR ---
Opening Shift Note Assumed care of patient, awake and alert. No S/S of distress/SOB or pain. Instructed on POC and to call for assist PRN, will continue to monitor for changes Q1hr and PRN.
[2019-11-25 20:00] VITALS: BP 137/66
[2019-11-25] MEDS: PRAVASTATIN SODIUM 20 MG TAB PO SCH (21:40)
[2019-11-25 21:50] VITALS: BP 137/66
[2019-11-26 05:03] VITALS: BP 131/62
[2019-11-26] MEDS: metroNIDAZOLE 500MG/100ML 100 ML IV SCH ×4 (06:18→22:30)
[2019-11-26] MEDS: GABAPENTIN 300 MG CAP PO SCH ×3 (06:18→22:29)
--- NOTE | 2019-11-26 07:00 | NUR ---
Opening Shift Note Received report on the patient. Awake lying in bed. Patient shows no signs of distress at this time. Discussed the plan with the patient. Bed in lowest position, side rails up x2, and the call light is within reach.
[2019-11-26 08:22] LABS: Albumin 2.7 g/dL (3.4-5.0); Potassium 3.8 mmol/L (3.5-5.1)
[2019-11-26 08:25] LABS: BUN/Creatinine Ratio 18.2; Bilirubin, Total 0.4 mg/dL (0.2-1.0); Total Protein 5.2 g/dL (6.4-8.2)
[2019-11-26 09:25] LABS: Basophils # (auto) 0 10 ^3/uL (0-0.2); Basophils % (auto) 0.4 % (0.0-2.0); Eosinophils # (auto) 0.2 10 ^3/uL (0-0.8); Eosinophils % (auto) 2.2 % (0.0-7.0); Hematocrit 28.6 % (36.0-46.0); Hemoglobin 9.4 g/dL (12.2-16.2); Lymphocytes # (auto) 1.2 10 ^3/uL (0.4-5.4); Lymphocytes % (auto) 15.8 % (10.0-50.0); Mean Corpuscular Hemoglobin 28.6 pg (28.0-32.0); Mean Corpuscular Hgb Conc. 32.7 g/dL (32.0-36.0); Mean Corpuscular Volume 87.5 fL (80.0-100.0); Monocytes # (auto) 0.5 10 ^3/uL (0-1.3); Monocytes % (auto) 7.3 % (0.0-12.0); Neutrophils # (auto) 5.5 10 ^3/uL (1.6-8.6); Neutrophils % (auto) 74.3 % (37.0-80.0); Platelet Count (auto) 251 10^3/uL (140-450); Red Blood Cells 3.27 10^6/uL (4.0-5.20); Red Cell Distribution Width 15.7 % (11.8-14.3); White Blood Cell 7.4 10^3/uL (4.4-10.8)
[2019-11-26 09:26] VITALS: BP 130/56
[2019-11-26] MEDS: DICLOFENAC SODIUM 50 MG PO SCH ×2 (10:00→22:00)
--- NOTE | 2019-11-26 10:30 | NUR ---
WOUND CARE NOTE: IN TO SEE PATIENT AT THIS TIME FOR LOW [place] SCORE OF 12. PATIENT ADDED TO SKIN INTEGRITY MONITORING. PATIENT ADMITTED TO [facility] WITH DIAGNOSIS OF GI BLEED, HISTORY OF HYPERTENSION, HYPERLIPIDEMIA. PATIENT IS AWAKE, ALERT, ORIENTED X 2. PATIENT IS ABLE TO ASSIST WITH HER TURNING/REPOSITIONING, BUT IS MOSTLY MAX ASSIST. 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 PATIENT HAS NO WOUNDS NOTED, ALL SKIN IS PINK AND BLANCHABLE. PATIENT WOULD BENEFIT FROM: FREQUENT TURN SCHEDULE Q 2 HOURS, PRN CONDITION PERMITS, WITH PRESSURE REDISTRIBUTION USING PILLOWS/WEDGES, BID/PRN APPLICATION WITH MOISTURE BARRIER CREAM, COVERING UPPER MEDIAL SACRUM WITH OPTIFOAM GENTLE SACRAL DRESSING PREVENTATIVE, SKIN/WOUND CARE PLAN, DIETARY CONSULT, CONTINUED MONITORING BY WOUND CARE TEAM.
[2019-11-26] MEDS: PANTOPRAZOLE 40 MG/10 ML VIAL INJ IV SCH ×2 (11:21→22:29)
[2019-11-26] MEDS: OXYBUTYNIN CHL 5 MG TAB PO SCH (11:21)
[2019-11-26 12:54] VITALS: BP 130/58
[2019-11-26] MEDS: SODIUM CHLORIDE 0.9% 1,000 ML IV SCH (14:41)
[2019-11-26 17:20] VITALS: BP 145/67
--- NOTE | 2019-11-26 20:30 | NUR ---
PT AWAKE ALERT AND DENIES PAIN AT THIS TIME.PT ABLE TO EASILY TURN SELF WITH PROMPTING. PULLED UP IN BED.CALL LIGHT IN REACH.WILL CONTINUE TO MONITOR.
[2019-11-26 21:57] VITALS: BP 120/72
[2019-11-26] MEDS: PRAVASTATIN SODIUM 20 MG TAB PO SCH (22:29)
[2019-11-27 04:36] VITALS: BP 120/81
[2019-11-27] MEDS: GABAPENTIN 300 MG CAP PO SCH ×3 (06:19→22:08)
[2019-11-27] MEDS: metroNIDAZOLE 500MG/100ML 100 ML IV SCH ×3 (06:19→22:08)
[2019-11-27] MEDS: SODIUM CHLORIDE 0.9% 1,000 ML IV SCH (07:21)
--- NOTE | 2019-11-27 07:30 | NUR ---
OPENING NOTE RECEIVED REPORT FROM NOC RN. PATIENT SLEEPING NO S/S OF DISTRESS.
[2019-11-27 08:00] VITALS: BP 98/48
[2019-11-27 09:00] VITALS: BP 98/48
[2019-11-27] MEDS: DICLOFENAC SODIUM 50 MG PO SCH ×2 (10:00→22:00)
[2019-11-27] MEDS: PANTOPRAZOLE 40 MG/10 ML VIAL INJ IV SCH ×2 (10:36→22:08)
[2019-11-27] MEDS: OXYBUTYNIN CHL 5 MG TAB PO SCH (10:36)
[2019-11-27 13:00] VITALS: BP 125/66
--- NOTE | 2019-11-27 14:11 | NUR ---
Nutrition Assessment Notes please see attached link for complete assessment Estimated energy needs BW 52 [id number] kcal (25-30 kcal/kg BW) Est protein needs 52-62g (1.0-1.2g/kg BW) Will reassess prn. Addendum: 11/27/19 at [address] Amended: Links added.
--- NOTE | 2019-11-27 15:30 | NUR ---
SS FOLLOW UP SPOKE WITH BILLY GOODEN, CLEARED FOR DISCHARGE.
[2019-11-27 16:23] LABS: BUN/Creatinine Ratio 15.4; Calcium 7.6 mg/dL (8.5-10.1)
--- NOTE | 2019-11-27 16:31 | NUR ---
assessment Patient is a 74 year old female who is alert and oriented. Patients cognitive abilities are intact. Prior to admission patient lived home alone and functioned independently. Patient informed me she is able to care for her own ADLs. Per patient she will return home to her prior living arrangements post discharge. Patient will need transport home. Patient has a scooter, and fww for home use. Patients PCP is Dr Sanchez. Patient feels safe returning home on discharge. Patient was on service with [facility] prior to admission. Patient has a ss consult for home health safety. MD order has been sent to [facility]. Waiting continuous improvement coordinator back now. I informed patient she has a right to speak to a sr. social media & mobile manager regarding all care. I informed patient she has a right to participate in any and all discharge planning. Patient has a POA and advanced directive. Patient verbalized understanding and agreed to discharge plan. Addendum: 11/27/19 at 1633 by Michelle MEHTA Amended: Links added.
--- NOTE | 2019-11-27 16:31 | NUR ---
I faxed home health order to [facility]-asking for authorization for [facility].
--- NOTE | 2019-11-27 16:37 | NUR ---
re-assessment Per Anjali arteaga [place] she has accepted patient for service on 11/29/2019. Addendum: 11/27/19 at 1638 by Michelle MEHTA Amended: Links added.
--- NOTE | 2019-11-27 16:45 | NUR ---
IV removal IV DC'd with clean sterile technique, catheter fully intact. Pressure dressing applied to site. Patient tolerated well. NOTE: PATIENT WAS TO DC, PIV WAS CAUSING PATIENT PAIN.
--- NOTE | 2019-11-27 17:14 | NUR ---
COMMUNICATION SPOKE TO PATIENTS POA, TOMAS ESPINAL . EXPLAINED PATIENT WOULD NOW BE TRANSFERING TO SNF, R/T PATIENT INABILITY TO BE IN HOME AND PROVIDE SELF-CARE AT HOME. TOMAS ESPINAL F/U ON RECTAL BLEEDING, PATIENT HAS NOT HAD RECTAL BLEEDING IN 2 DAYS. PATIENT IS UNSAFE TO DC HOME. WILL F/U WITH POC FOR SNF PLACEMENT ON 11/28/2019.
--- NOTE | 2019-11-27 17:40 | NUR ---
re-assessment Per Dr Harmon patient needs SNF. Patient has agreed to SNF, but refuses [facility]. MD [facility]. I informed Kaur RN that patient needs a Covid test and a PT eval. Kaur verbalized understanding. Waiting on reply back now from SNF's. Addendum: 11/27/19 at 1742 by Michelle MEHTA Amended: Links added.
--- NOTE | 2019-11-27 19:30 | NUR ---
Opening Shift Note Received report from Kaur, day RN. Assumed care of patient, awake and alert resting in bed. No S/S of distress/SOB or pain. Instructed on POC and to call for assist PRN, will continue to monitor for changes Q1hr and PRN. Bed placed in lowest position and call light within reach.
[2019-11-27 20:00] VITALS: BP 144/73
[2019-11-27 22:00] VITALS: BP 144/73
[2019-11-27] MEDS: PRAVASTATIN SODIUM 20 MG TAB PO SCH (22:08)
--- NOTE | 2019-11-27 22:30 | NUR ---
IV insertion IV access obtained, via clean sterile technique by inserting 22 gauge catheter at left forearm after first attempt. IV secured properly. No trauma to site. Patient tolerated procedure well.
--- NOTE | 2019-11-27 23:00 | NUR ---
PATIENT HAD AN EPISODE OF INCONTINENCE OF URINE. COMPLETE BED CHANGED DONE.
[2019-11-28] MEDS: SODIUM CHLORIDE 0.9% 1,000 ML IV SCH ×2 (01:46→16:41)
[2019-11-28 05:30] VITALS: BP 146/75
[2019-11-28] MEDS: metroNIDAZOLE 500MG/100ML 100 ML IV SCH ×2 (06:32→14:00)
[2019-11-28] MEDS: GABAPENTIN 300 MG CAP PO SCH ×2 (06:33→15:54)
--- NOTE | 2019-11-28 07:36 | NUR ---
COVID SWAB DONE AND WALKED TO THE LAB. PATIENT TOLERATED WELL.
--- NOTE | 2019-11-28 07:45 | NUR ---
Opening Shift Note Assumed care of patient, awake and alert. No S/S of distress/SOB or pain. Instructed on POC and to call for assist PRN, will continue to monitor for changes Q1hr and PRN. Bed locked in lowest position with two side rails up and call light in reach.
[2019-11-28 08:00] VITALS: BP 115/69
[2019-11-28 09:00] VITALS: BP 115/69
--- NOTE | 2019-11-28 09:59 | NUR ---
I faxed SNF order to [facility].
[2019-11-28] MEDS: DICLOFENAC SODIUM 50 MG PO SCH (10:00)
[2019-11-28] MEDS: PANTOPRAZOLE 40 MG/10 ML VIAL INJ IV SCH (10:14)
[2019-11-28] MEDS: OXYBUTYNIN CHL 5 MG TAB PO SCH (10:14)
[2019-11-28 13:00] VITALS: BP 117/70
--- NOTE | 2019-11-28 14:26 | NUR ---
I received a call from [employer]-auth number for [facility] is [id number]. Per Daily, patient does not have transportation benefit.
[2019-11-28 14:59] VITALS: BP 115/69
[2019-11-28] MEDS ORDERED: POTASSIUM CHL 20 Meq TABLET PO ONE (15:00)
--- NOTE | 2019-11-28 16:07 | NUR ---
re-assessment Patient has been accepted to room 211 bed 1 at [facility]. Per [facility] case worker [facility] auth is [id number]. Per [employer] patient has no transportation benefit. Patient has agreed to pay for transport. Per Cristino at [facility] he will transport patient by wheelchair for 75.00. Patient agrees to pay by credit card. Amirah JENNINGS has provided patient with phone number to pay by credit card. [facility] will transport patient at 5pm today post discharge. [facility] for report is [phone]. Patient verbalized understanding and agreed to discharge plan to SNF. Addendum: 11/28/19 at 1622 by Michelle MEHTA Amended: Links added.
--- NOTE | 2019-11-28 16:29 | NUR ---
PATIENT PAID VIA TELEPHONE AND HER CREDIT CARD FOR TRANSPORTATION. PATIENT VERBALLY AGREED AND SAFETY CARE CALLED [phone] AND WILL BE HERE AT 7420.
--- NOTE | 2019-11-28 16:31 | NUR ---
CALLED [facility] REPORT GIVEN TO SHANICE
[2019-11-28 17:00] VITALS: BP 161/77
--- NOTE | 2019-11-28 17:30 | NUR ---
Discharge instructions given as ordered. Encourage to follow up with PMD as instructed. All questions and concerns addressed. Patient verbalized understanding. Medication reconciliation form completed and copy given to patient. No Home medications held in Pharmacy and none to be returned to patient, and no needed vaccines given. IV removed with catheter intact, pressure dressing applied. Telemetry unit returned to ICU. Patient taken to vehicle via wheelchair with all personal belongings, accompanied by transportation Safety Care. No distress noted at time of departure.
== END 2019-11-28 17:00 | DRG 379 ==
LOC: EDBD 00:45 → ER 00:50 → TELE 00:51 → TELE-WESTW 17:04
PROVIDERS: ADMIT Hospitalist; ATTEND Internal Medicine
DX: K92.2 Gastrointestinal hemorrhage, unspecified (principal); I10 Essential (primary) hypertension; H91.13 Presbycusis, bilateral; E78.5 Hyperlipidemia, unspecified; F02.80 Dementia in other diseases classified elsewhere, unspecified severity, without behavioral disturbance, psychotic disturbance, mood disturbance, and anxiety; G30.9 Alzheimer's disease, unspecified; Z20.828 Contact with and (suspected) exposure to other viral communicable diseases; G43.909 Migraine, unspecified, not intractable, without status migrainosus; Z82.3 Family history of stroke; Z90.710 Acquired absence of both cervix and uterus; Z90.49 Acquired absence of other specified parts of digestive tract
CPT/HCPCS: 36415; 71045; 74177; 80048; 80053; 81001; 83605; 85025; 85610; 85730; 87040; 87081; 93005; 96361; 96365; 96375; 96376; C9113; G0378; J2405; J3490

== ENCOUNTER 2020-05-12 14:35 | Emergency (ER) | payer OTHER ==
[~2020-05-12] VITALS: Ht 162.6 cm; Wt 49.9 kg
[~2020-05-12 14:35] MED LIST changes: -OXYB5TAB61; +OXYB5TAB61 PO
[2020-05-12 14:52] VITALS: BP 155/86
[2020-05-12] MEDS ORDERED: traMADol HCL 50 MG TAB PO ONE (16:30)
== END 2020-05-12 17:39 | disposition home or self-care (01) ==
LOC: ER 14:35 → EDBD 14:35 → EDUNIT# 14:35 → ER 16:54
DX: S42.032A Displaced fracture of lateral end of left clavicle, initial encounter for closed fracture (principal); R42 Dizziness and giddiness; Z88.1 Allergy status to other antibiotic agents; Z88.8 Allergy status to other drugs, medicaments and biological substances; W18.39XA Other fall on same level, initial encounter; Y93.89 Activity, other specified; Y92.89 Other specified places as the place of occurrence of the external cause; Y99.8 Other external cause status
CPT/HCPCS: 73030; 73200

== ENCOUNTER 2020-06-16 14:17 | Inpatient (IN) | payer OTHER ==
[~2020-06-16] VITALS: Ht 165.1 cm; Wt 48.0 kg
[2020-06-16 17:33] LABS: Basophils # (auto) 0 10 ^3/uL (0-0.2); Eosinophils # (auto) 0 10 ^3/uL (0-0.8); Hemoglobin 11.3 g/dL (12.2-16.2); Mean Corpuscular Volume 72.1 fL (80.0-100.0); Monocytes # (auto) 0.4 10 ^3/uL (0-1.3); White Blood Cell 3.2 10^3/uL (4.4-10.8)
[2020-06-16 17:34] LABS: Basophils % (auto) 0.7 % (0.0-2.0); Hematocrit 36.5 % (36.0-46.0); Lymphocytes # (auto) 0.7 10 ^3/uL (0.4-5.4); Lymphocytes % (auto) 23.5 % (10.0-50.0); Mean Corpuscular Hemoglobin 22.2 pg (28.0-32.0); Mean Corpuscular Hgb Conc. 30.8 g/dL (32.0-36.0); Monocytes % (auto) 12.5 % (0.0-12.0); Neutrophils % (auto) 63.3 % (37.0-80.0); Platelet Count (auto) 221 10^3/uL (140-450); Red Blood Cells 5.06 10^6/uL (4.0-5.20); Red Cell Distribution Width 18.9 % (11.8-14.3)
[2020-06-16 17:46] LABS: Chloride 105 mmol/L (98-107); Potassium 3.1 mmol/L (3.5-5.1); Sodium 139 mmol/L (136-145)
[2020-06-16 17:49] LABS: INR 0.99 (0.9-1.15); Partial Thromboplastin Time 28.5 sec (23.0-31.2)
[2020-06-16 17:50] LABS: Alanine Aminotransferase 20 U/L (13-56); Albumin 3.2 g/dL (3.4-5.0); Anion Gap 11 (5-15); Aspartate Aminotransferase 26 U/L (15-37); Blood Urea Nitrogen 13 mg/dL (7-18); Calcium 8.1 mg/dL (8.5-10.1); Carbon Dioxide 23 mmol/L (21-32); GFR African American 121 mL/min; GFR Non-African American 100 mL/min; Glucose 80 mg/dL (74-106)
[2020-06-16 17:52] LABS: Alkaline Phosphatase 72 U/L (45-117); Bilirubin, Total 0.3 mg/dL (0.2-1.0); Total Protein 6.7 g/dL (6.4-8.2)
[2020-06-16] MEDS ORDERED: ACETAMINOPHEN/CODEINE#3 (300/30mg) TAB PO ONE (18:30)
[2020-06-16] MEDS ORDERED: LABETALOL HCL 200 MG TAB PO ONE (18:30)
[2020-06-16] MEDS ORDERED: MORPHINE SULF INJ 2 MG/ML SYRINGE 1ML IV PRN ×2 (18:30→19:15)
[2020-06-16] MEDS ORDERED: ONDANSETRON ODT 4 MG TAB PO ONE (18:30)
[2020-06-16] MEDS ORDERED: NITROGLYCERIN 0.4 MG SL TAB SL PRN ×2 (18:30→19:15)
[2020-06-16] MEDS ORDERED: POTASSIUM CHL 20 Meq TABLET PO ONE (18:30)
[2020-06-16] MEDS ORDERED: POTASSIUM CHL 20MEQ/100ML 100 ML IV ONE (18:45)
[2020-06-16] MEDS ORDERED: INFLUENZA QUAD 2020-2021 0.5 ML SYRG IM ONE (19:15)
[2020-06-16] MEDS ORDERED: DOCUSATE SOD 100 MG CAP PO PRN (19:15)
[2020-06-16] MEDS ORDERED: ALUM & MAG HYDROX-SIMETH LIQ(MAALOX) 30 ML PO PRN (19:15)
[2020-06-16] MEDS: SODIUM CHLORIDE 0.9% 1,000 ML IV SCH (19:15)
[2020-06-16] MEDS ORDERED: PNEUMOCOCCAL VACC POLYS 25 MCG/0.5 ML VIAL IM ONE (19:15)
[2020-06-16] MEDS ORDERED: ONDANSETRON HCL 4 MG/2 ML VIAL IV PRN (19:15)
[2020-06-16] MEDS ORDERED: cefTRIAXone 1GM/50ML D5W 50 ML IV ONE (19:30)
[2020-06-16] MEDS: FAMOTIDINE (10MG/ML) 2ML VL IV SCH (22:00)
[2020-06-16] MEDS: ATORVASTATIN 20 MG TAB PO SCH (22:00)
[2020-06-16] MEDS: GABAPENTIN 100 MG CAP PO SCH (22:00)
[2020-06-16] MEDS: FERROUS SULFATE 300 MG/5 ML ORAL LIQ PO SCH (22:00)
[2020-06-17] MEDS: Ensure Enlive Strawberry 8oz Bottle PO SCH ×3 (08:00→18:00)
[2020-06-17] MEDS: GABAPENTIN 100 MG CAP PO SCH ×2 (09:35→17:58)
[2020-06-17] MEDS: cefTRIAXone 1GM/50ML D5W 50 ML IV SCH (09:35)
[2020-06-17] MEDS: FAMOTIDINE (10MG/ML) 2ML VL IV SCH (09:35)
[2020-06-17] MEDS: FERROUS SULFATE 300 MG/5 ML ORAL LIQ PO SCH ×2 (09:35→22:00)
[2020-06-17] MEDS: MULTIPLE VITAMINS W/ MINERALS TAB PO SCH (09:36)
[2020-06-17] MEDS: OXYBUTYNIN CHL 5 MG TAB PO SCH (09:36)
[2020-06-17] MEDS: POTASSIUM CHL 20 Meq TABLET PO SCH (09:36)
[2020-06-17] MEDS: ENOXAPARIN SOD 40 MG/0.4 ML SYRINGE SC SCH (09:37)
[2020-06-17 16:14] LABS: Hematocrit 32.5 % (36.0-46.0); Hemoglobin 9.8 g/dL (12.2-16.2); Mean Corpuscular Hemoglobin 22.3 pg (28.0-32.0); Mean Corpuscular Hgb Conc. 30.2 g/dL (32.0-36.0); Mean Corpuscular Volume 73.8 fL (80.0-100.0); Platelet Count (auto) 182 10^3/uL (140-450); Red Cell Distribution Width 19.1 % (11.8-14.3); White Blood Cell 2.8 10^3/uL (4.4-10.8)
[2020-06-17 16:18] LABS: Band Neutrophils % (manual) 0; Basophils % (manual) 0 (0.0-2.0); Blast Cells 0; Eosinophils % (manual) 0 (0-7); Metamyelocytes % 0; Myelocytes % 0; Promyelocytes % 0; Reactive Lymphocytes 0
[2020-06-17 16:25] LABS: Calcium 7.3 mg/dL (8.5-10.1); Potassium 4.8 mmol/L (3.5-5.1)
[2020-06-17 16:30] LABS: Lymphocytes % (manual) 30 (10.0-50.0); Monocytes % (manual) 11 (0-12)
[2020-06-17 16:31] LABS: Albumin 2.5 g/dL (3.4-5.0); BUN/Creatinine Ratio 21.4; Bilirubin, Total 0.2 mg/dL (0.2-1.0); Total Protein 5.6 g/dL (6.4-8.2)
[2020-06-17] MEDS: SODIUM CHLORIDE 0.9% 1,000 ML IV SCH (17:14)
[2020-06-17] MEDS: AZITHROMYCIN 250 MG TAB PO SCH (17:58)
[2020-06-17] MEDS: HYDROcodone-ACET 5/325MG TAB PO PRN (17:59)
[2020-06-17] MEDS: MORPHINE SULF INJ 2 MG/ML SYRINGE 1ML IV PRN (23:23)
[2020-06-18] VITALS (7 sets, daily range): BP systolic 118–138; BP diastolic 58–79
[2020-06-18] MEDS: ATORVASTATIN 20 MG TAB PO SCH ×2 (01:25→21:30)
[2020-06-18] MEDS: HYDROcodone-ACET 5/325MG TAB PO PRN (01:27)
[2020-06-18] MEDS: SODIUM CHLORIDE 0.9% 1,000 ML IV SCH ×2 (04:35→21:29)
[2020-06-18] MEDS: GABAPENTIN 100 MG CAP PO SCH ×4 (05:26→21:30)
[2020-06-18 06:25] LABS: Calcium 7.8 mg/dL (8.5-10.1); Potassium 4.2 mmol/L (3.5-5.1)
[2020-06-18 06:27] LABS: BUN/Creatinine Ratio 27.7
[2020-06-18 06:55] LABS: Basophils # (auto) 0 10 ^3/uL (0-0.2); Eosinophils # (auto) 0 10 ^3/uL (0-0.8); Hemoglobin 9.3 g/dL (12.2-16.2); Mean Corpuscular Hemoglobin 22.4 pg (28.0-32.0); Monocytes # (auto) 0.4 10 ^3/uL (0-1.3); Nucleated Red Blood Cells % 0.2 %; Red Cell Distribution Width 18.7 % (11.8-14.3); White Blood Cell 3.4 10^3/uL (4.4-10.8)
[2020-06-18 06:57] LABS: Basophils % (auto) 0.5 % (0.0-2.0); Eosinophils % (auto) 0.3 % (0.0-7.0); Hematocrit 29.8 % (36.0-46.0); Lymphocytes # (auto) 0.8 10 ^3/uL (0.4-5.4); Lymphocytes % (auto) 24.3 % (10.0-50.0); Mean Corpuscular Hgb Conc. 31.3 g/dL (32.0-36.0); Mean Corpuscular Volume 71.7 fL (80.0-100.0); Monocytes % (auto) 10.8 % (0.0-12.0); Neutrophils # (auto) 2.2 10 ^3/uL (1.6-8.6); Neutrophils % (auto) 64.1 % (37.0-80.0); Platelet Count (auto) 201 10^3/uL (140-450); Red Blood Cells 4.15 10^6/uL (4.0-5.20)
[2020-06-18] MEDS: Ensure Enlive Strawberry 8oz Bottle PO SCH ×3 (08:00→18:01)
[2020-06-18] MEDS: cefTRIAXone 1GM/50ML D5W 50 ML IV SCH (09:38)
[2020-06-18] MEDS: POTASSIUM CHL 20 Meq TABLET PO SCH (09:39)
[2020-06-18] MEDS: MULTIPLE VITAMINS W/ MINERALS TAB PO SCH (09:39)
[2020-06-18] MEDS: ENOXAPARIN SOD 40 MG/0.4 ML SYRINGE SC SCH (09:39)
[2020-06-18] MEDS: OXYBUTYNIN CHL 5 MG TAB PO SCH (09:39)
[2020-06-18] MEDS: FAMOTIDINE (10MG/ML) 2ML VL IV SCH (09:39)
[2020-06-18] MEDS: AZITHROMYCIN 250 MG TAB PO SCH (09:39)
[2020-06-18] MEDS: MORPHINE SULF INJ 2 MG/ML SYRINGE 1ML IV PRN ×2 (11:37→21:23)
[2020-06-18] MEDS: FERROUS SULFATE 300 MG/5 ML ORAL LIQ PO SCH ×2 (12:30→21:29)
[2020-06-19 00:21] VITALS: BP 119/69
[2020-06-19 04:55] VITALS: BP 128/66
[2020-06-19] MEDS: ACETAMINOPHEN 325 MG TAB PO PRN (05:20)
[2020-06-19] MEDS: GABAPENTIN 100 MG CAP PO SCH ×3 (05:33→22:28)
[2020-06-19 06:20] LABS: Basophils # (auto) 0 10 ^3/uL (0-0.2); Basophils % (auto) 0.4 % (0.0-2.0); Eosinophils # (auto) 0 10 ^3/uL (0-0.8); Hemoglobin 10.4 g/dL (12.2-16.2); Lymphocytes # (auto) 0.9 10 ^3/uL (0.4-5.4); Mean Corpuscular Volume 70.9 fL (80.0-100.0); Monocytes # (auto) 0.3 10 ^3/uL (0-1.3); Nucleated Red Blood Cells % 0.2 %; White Blood Cell 3.3 10^3/uL (4.4-10.8)
[2020-06-19 06:22] LABS: Eosinophils % (auto) 0.1 % (0.0-7.0); Hematocrit 32.8 % (36.0-46.0); Lymphocytes % (auto) 28.1 % (10.0-50.0); Mean Corpuscular Hemoglobin 22.4 pg (28.0-32.0); Mean Corpuscular Hgb Conc. 31.6 g/dL (32.0-36.0); Monocytes % (auto) 9.1 % (0.0-12.0); Neutrophils % (auto) 62.3 % (37.0-80.0); Platelet Count (auto) 251 10^3/uL (140-450); Red Blood Cells 4.63 10^6/uL (4.0-5.20); Red Cell Distribution Width 18.8 % (11.8-14.3)
[2020-06-19 06:24] LABS: Potassium 4.7 mmol/L (3.5-5.1)
[2020-06-19 06:28] LABS: Calcium 8.1 mg/dL (8.5-10.1)
[2020-06-19 08:00] VITALS: BP 115/75
[2020-06-19] MEDS: Ensure Enlive Strawberry 8oz Bottle PO SCH ×3 (08:15→18:00)
[2020-06-19] MEDS: cefTRIAXone 1GM/50ML D5W 50 ML IV SCH (08:58)
[2020-06-19] MEDS: FAMOTIDINE (10MG/ML) 2ML VL IV SCH (08:58)
[2020-06-19] MEDS: MULTIPLE VITAMINS W/ MINERALS TAB PO SCH (08:59)
[2020-06-19] MEDS: POTASSIUM CHL 20 Meq TABLET PO SCH (08:59)
[2020-06-19] MEDS: OXYBUTYNIN CHL 5 MG TAB PO SCH (08:59)
[2020-06-19] MEDS: AZITHROMYCIN 250 MG TAB PO SCH (09:00)
[2020-06-19] MEDS: ENOXAPARIN SOD 40 MG/0.4 ML SYRINGE SC SCH (09:00)
[2020-06-19] MEDS: FERROUS SULFATE 300 MG/5 ML ORAL LIQ PO SCH ×2 (10:00→22:42)
[2020-06-19] MEDS: SODIUM CHLORIDE 0.9% 1,000 ML IV SCH (13:41)
[2020-06-19] MEDS: MORPHINE SULF INJ 2 MG/ML SYRINGE 1ML IV PRN ×2 (15:09→20:05)
[2020-06-19 16:00] VITALS: BP 128/72
[2020-06-19] MEDS: ATORVASTATIN 20 MG TAB PO SCH (22:28)
[2020-06-20] VITALS: BP 153/83
[2020-06-20] MEDS: ACETAMINOPHEN 325 MG TAB PO PRN (00:10)
[2020-06-20] MEDS ORDERED: REMDESIVIR PER PHARMACY 0 ML IV SCH (00:30)
[2020-06-20] MEDS: SODIUM CHLORIDE 0.9% 1,000 ML IV SCH (05:54)
[2020-06-20] MEDS: GABAPENTIN 100 MG CAP PO SCH ×3 (05:55→21:46)
[2020-06-20 06:13] LABS: Basophils # (auto) 0 10 ^3/uL (0-0.2); Eosinophils # (auto) 0 10 ^3/uL (0-0.8); Lymphocytes # (auto) 0.6 10 ^3/uL (0.4-5.4); Monocytes # (auto) 0.3 10 ^3/uL (0-1.3); Nucleated Red Blood Cells % 0.2 %; White Blood Cell 2.9 10^3/uL (4.4-10.8)
[2020-06-20 06:15] LABS: Basophils % (auto) 0.5 % (0.0-2.0); Eosinophils % (auto) 0.1 % (0.0-7.0); Hematocrit 30.8 % (36.0-46.0); Mean Corpuscular Hemoglobin 22.8 pg (28.0-32.0); Mean Corpuscular Hgb Conc. 32.3 g/dL (32.0-36.0); Mean Corpuscular Volume 70.6 fL (80.0-100.0); Monocytes % (auto) 10.4 % (0.0-12.0); Platelet Count (auto) 218 10^3/uL (140-450); Red Blood Cells 4.37 10^6/uL (4.0-5.20); Red Cell Distribution Width 18.7 % (11.8-14.3)
[2020-06-20 06:37] LABS: BUN/Creatinine Ratio 32.5; Calcium 7.9 mg/dL (8.5-10.1); Potassium 4.2 mmol/L (3.5-5.1)
[2020-06-20 07:19] LABS: Albumin 2.2 g/dL (3.4-5.0)
[2020-06-20 07:24] LABS: Bilirubin, Direct 0.1 mg/dL (0-0.2); Bilirubin, Total 0.3 mg/dL (0.2-1.0); Total Protein 5.4 g/dL (6.4-8.2)
[2020-06-20 08:00] VITALS: BP 160/79
[2020-06-20] MEDS: cefTRIAXone 1GM/50ML D5W 50 ML IV SCH (08:20)
[2020-06-20] MEDS: Ensure Enlive Strawberry 8oz Bottle PO SCH ×3 (08:20→18:00)
[2020-06-20] MEDS: FAMOTIDINE (10MG/ML) 2ML VL IV SCH (08:25)
[2020-06-20] MEDS: POTASSIUM CHL 20 Meq TABLET PO SCH (08:27)
[2020-06-20] MEDS: OXYBUTYNIN CHL 5 MG TAB PO SCH (08:27)
[2020-06-20] MEDS: AZITHROMYCIN 250 MG TAB PO SCH (08:28)
[2020-06-20] MEDS: MULTIPLE VITAMINS W/ MINERALS TAB PO SCH (08:28)
[2020-06-20] MEDS: hydrALAZINE HCL 20 MG/ML VL IV PRN (08:36)
[2020-06-20] MEDS: MORPHINE SULF INJ 2 MG/ML SYRINGE 1ML IV PRN ×4 (08:59→21:48)
[2020-06-20] MEDS: FERROUS SULFATE 300 MG/5 ML ORAL LIQ PO SCH ×2 (10:00→22:39)
[2020-06-20] MEDS: ENOXAPARIN SOD 40 MG/0.4 ML SYRINGE SC SCH (13:27)
[2020-06-20] MEDS ORDERED: DexAMETHasone SOD PHOS 10MG/1ML VIAL INJ IV ONE (14:45)
[2020-06-20] MEDS ORDERED: REMDESIVIR 200 MG in NS 210ml LOADING DOSE ADULT IV ONE (15:00)
[2020-06-20 16:00] VITALS: BP 144/65
[2020-06-20] MEDS: amLODIPine BESYLATE 5 MG TAB PO SCH (17:26)
[2020-06-20] MEDS: ATORVASTATIN 20 MG TAB PO SCH (21:47)
[2020-06-21] VITALS: BP 102/62
[2020-06-21] MEDS: GABAPENTIN 100 MG CAP PO SCH ×2 (05:41→14:31)
[2020-06-21] MEDS: SODIUM CHLORIDE 0.9% 1,000 ML IV SCH ×2 (05:46→15:55)
[2020-06-21 08:00] VITALS: BP 124/65
[2020-06-21] MEDS: Ensure Enlive Strawberry 8oz Bottle PO SCH ×3 (08:20→18:00)
[2020-06-21] MEDS: cefTRIAXone 1GM/50ML D5W 50 ML IV SCH (09:54)
[2020-06-21] MEDS: FERROUS SULFATE 300 MG/5 ML ORAL LIQ PO SCH ×2 (09:54→20:35)
[2020-06-21] MEDS: DexAMETHasone SOD PHOS 10MG/1ML VIAL INJ IV SCH (09:54)
[2020-06-21] MEDS: MULTIPLE VITAMINS W/ MINERALS TAB PO SCH (09:56)
[2020-06-21] MEDS: POTASSIUM CHL 20 Meq TABLET PO SCH (09:56)
[2020-06-21] MEDS: OXYBUTYNIN CHL 5 MG TAB PO SCH (09:56)
[2020-06-21] MEDS: amLODIPine BESYLATE 5 MG TAB PO SCH (09:57)
[2020-06-21] MEDS: PANTOPRAZOLE 40 MG TAB PO SCH (09:57)
[2020-06-21] MEDS: AZITHROMYCIN 250 MG TAB PO SCH (09:57)
[2020-06-21] MEDS: ENOXAPARIN SOD 40 MG/0.4 ML SYRINGE SC SCH (09:58)
[2020-06-21] MEDS: REMDESIVIR 100 MG in SODIUM CHL 0.9% 250 ML IV SCH (15:26)
[2020-06-21 16:24] VITALS: BP 112/69
[2020-06-21] MEDS: HYDROcodone-ACET 5/325MG TAB PO PRN (16:52)
[2020-06-21] MEDS: ATORVASTATIN 20 MG TAB PO SCH (20:35)
[2020-06-21] MEDS: GABAPENTIN 300 MG CAP PO SCH (20:36)
[2020-06-21] MEDS: MORPHINE SULF INJ 2 MG/ML SYRINGE 1ML IV PRN (20:46)
[2020-06-21 23:58] VITALS: BP 117/70
[2020-06-22] MEDS: GABAPENTIN 300 MG CAP PO SCH ×3 (04:50→21:16)
[2020-06-22] MEDS: MORPHINE SULF INJ 2 MG/ML SYRINGE 1ML IV PRN ×4 (07:31→22:13)
[2020-06-22 07:42] LABS: Albumin 2.2 g/dL (3.4-5.0); BUN/Creatinine Ratio 54.5; Calcium 7.7 mg/dL (8.5-10.1); Potassium 4.3 mmol/L (3.5-5.1)
[2020-06-22 08:00] VITALS: BP 125/72
[2020-06-22] MEDS: Ensure Enlive Strawberry 8oz Bottle PO SCH ×3 (08:00→17:08)
[2020-06-22] MEDS: SODIUM CHLORIDE 0.9% 1,000 ML IV SCH ×2 (08:35→21:16)
[2020-06-22 08:47] LABS: Bilirubin, Total 0.3 mg/dL (0.2-1.0); Total Protein 5.4 g/dL (6.4-8.2)
[2020-06-22] MEDS: cefTRIAXone 1GM/50ML D5W 50 ML IV SCH (09:00)
[2020-06-22 09:20] VITALS: BP 125/72
[2020-06-22] MEDS: FERROUS SULFATE 300 MG/5 ML ORAL LIQ PO SCH ×3 (10:00→21:26)
[2020-06-22] MEDS: DexAMETHasone SOD PHOS 10MG/1ML VIAL INJ IV SCH (10:21)
[2020-06-22] MEDS: MULTIPLE VITAMINS W/ MINERALS TAB PO SCH (10:21)
[2020-06-22] MEDS: OXYBUTYNIN CHL 5 MG TAB PO SCH (10:21)
[2020-06-22] MEDS: amLODIPine BESYLATE 5 MG TAB PO SCH (10:21)
[2020-06-22] MEDS: ENOXAPARIN SOD 40 MG/0.4 ML SYRINGE SC SCH (10:22)
[2020-06-22] MEDS: PANTOPRAZOLE 40 MG TAB PO SCH (10:22)
[2020-06-22] MEDS: AZITHROMYCIN 250 MG TAB PO SCH (10:22)
[2020-06-22] MEDS: ALBUTEROL SULF HFA 90MCG INH 200DOSE IN SCH (15:15)
[2020-06-22 16:00] VITALS: BP 120/70
[2020-06-22] MEDS: REMDESIVIR 100 MG in SODIUM CHL 0.9% 250 ML IV SCH (16:38)
[2020-06-22] MEDS: LORazepam 0.5 MG TAB PO PRN (21:16)
[2020-06-22] MEDS: ATORVASTATIN 20 MG TAB PO SCH (21:16)
[2020-06-23] VITALS: BP 135/82
[2020-06-23] MEDS: MORPHINE SULF INJ 2 MG/ML SYRINGE 1ML IV PRN ×2 (02:03→22:32)
[2020-06-23] MEDS: GABAPENTIN 300 MG CAP PO SCH ×3 (06:04→22:00)
[2020-06-23 08:00] VITALS: BP 150/80
[2020-06-23] MEDS: ALBUTEROL SULF HFA 90MCG INH 200DOSE IN SCH ×2 (09:03→19:43)
[2020-06-23 09:20] LABS: Basophils # (auto) 0 10 ^3/uL (0-0.2); Eosinophils # (auto) 0 10 ^3/uL (0-0.8); Platelet Count (auto) 366 10^3/uL (140-450)
[2020-06-23 09:23] LABS: Basophils % (auto) 0.1 % (0.0-2.0); Hematocrit 37.3 % (36.0-46.0); Lymphocytes # (auto) 0.3 10 ^3/uL (0.4-5.4); Mean Corpuscular Hemoglobin 22.5 pg (28.0-32.0); Mean Corpuscular Hgb Conc. 32.2 g/dL (32.0-36.0); Mean Corpuscular Volume 70.1 fL (80.0-100.0); Monocytes # (auto) 0.8 10 ^3/uL (0-1.3); Monocytes % (auto) 7.6 % (0.0-12.0); Neutrophils # (auto) 9.8 10 ^3/uL (1.6-8.6); Neutrophils % (auto) 89.3 % (37.0-80.0); Nucleated Red Blood Cells % 0.1 %; Red Blood Cells 5.32 10^6/uL (4.0-5.20); Red Cell Distribution Width 18.7 % (11.8-14.3); White Blood Cell 10.9 10^3/uL (4.4-10.8)
[2020-06-23 09:28] LABS: Calcium 8.3 mg/dL (8.5-10.1); Potassium 4.3 mmol/L (3.5-5.1)
[2020-06-23 09:35] LABS: Albumin 2.4 g/dL (3.4-5.0); Bilirubin, Total 0.4 mg/dL (0.2-1.0); Total Protein 6.3 g/dL (6.4-8.2)
[2020-06-23] MEDS: MULTIPLE VITAMINS W/ MINERALS TAB PO SCH (10:07)
[2020-06-23] MEDS: AZITHROMYCIN 250 MG TAB PO SCH (10:07)
[2020-06-23] MEDS: PANTOPRAZOLE 40 MG TAB PO SCH (10:07)
[2020-06-23] MEDS: OXYBUTYNIN CHL 5 MG TAB PO SCH (10:08)
[2020-06-23] MEDS: amLODIPine BESYLATE 5 MG TAB PO SCH (10:09)
[2020-06-23] MEDS: DexAMETHasone SOD PHOS 10MG/1ML VIAL INJ IV SCH (10:09)
[2020-06-23] MEDS: ENOXAPARIN SOD 40 MG/0.4 ML SYRINGE SC SCH (10:09)
[2020-06-23] MEDS: cefTRIAXone 1GM/50ML D5W 50 ML IV SCH (10:11)
[2020-06-23] MEDS: Ensure Enlive Strawberry 8oz Bottle PO SCH ×3 (10:11→18:48)
[2020-06-23 16:00] VITALS: BP 140/78
[2020-06-23] MEDS: FERROUS SULFATE 300 MG/5 ML ORAL LIQ PO SCH ×2 (16:25→22:00)
[2020-06-23] MEDS: REMDESIVIR 100 MG in SODIUM CHL 0.9% 250 ML IV SCH (16:29)
[2020-06-23] MEDS: SODIUM CHLORIDE 0.9% 1,000 ML IV SCH (18:47)
[2020-06-23] MEDS: ATORVASTATIN 20 MG TAB PO SCH (22:00)
[2020-06-24] VITALS: BP 143/74
[2020-06-24] MEDS: MORPHINE SULF INJ 2 MG/ML SYRINGE 1ML IV PRN ×2 (03:03→21:16)
[2020-06-24] MEDS: GABAPENTIN 300 MG CAP PO SCH ×3 (05:35→21:15)
[2020-06-24] MEDS: FUROSEMIDE 40 MG/4 ML VIAL IV SCH ×2 (06:13→09:39)
[2020-06-24] MEDS: ALBUTEROL SULF HFA 90MCG INH 200DOSE IN SCH ×3 (06:19→20:36)
[2020-06-24 08:00] VITALS: BP 133/76
[2020-06-24] MEDS: Ensure Enlive Strawberry 8oz Bottle PO SCH ×3 (08:00→21:15)
[2020-06-24] MEDS: DexAMETHasone SOD PHOS 10MG/1ML VIAL INJ IV SCH (09:38)
[2020-06-24] MEDS: cefTRIAXone 1GM/50ML D5W 50 ML IV SCH (09:38)
[2020-06-24] MEDS: FERROUS SULFATE 300 MG/5 ML ORAL LIQ PO SCH ×2 (09:39→21:14)
[2020-06-24] MEDS: MULTIPLE VITAMINS W/ MINERALS TAB PO SCH (09:39)
[2020-06-24] MEDS: OXYBUTYNIN CHL 5 MG TAB PO SCH (09:39)
[2020-06-24] MEDS: PANTOPRAZOLE 40 MG TAB PO SCH (09:40)
[2020-06-24] MEDS: amLODIPine BESYLATE 5 MG TAB PO SCH (09:40)
[2020-06-24] MEDS: AZITHROMYCIN 250 MG TAB PO SCH (09:40)
[2020-06-24] MEDS: ENOXAPARIN SOD 40 MG/0.4 ML SYRINGE SC SCH (09:40)
[2020-06-24 10:16] LABS: Albumin 2.6 g/dL (3.4-5.0); Calcium 8.4 mg/dL (8.5-10.1); Potassium 3.3 mmol/L (3.5-5.1)
[2020-06-24 10:21] LABS: BUN/Creatinine Ratio 34.5; Bilirubin, Total 0.6 mg/dL (0.2-1.0); Total Protein 6.6 g/dL (6.4-8.2)
[2020-06-24 13:04] LABS: Basophils # (auto) 0 10 ^3/uL (0-0.2); Basophils % (auto) 0.1 % (0.0-2.0); Eosinophils # (auto) 0 10 ^3/uL (0-0.8); Hematocrit 41.9 % (36.0-46.0); Hemoglobin 13.4 g/dL (12.2-16.2); Lymphocytes # (auto) 0.2 10 ^3/uL (0.4-5.4); Lymphocytes % (auto) 1.1 % (10.0-50.0); Mean Corpuscular Hemoglobin 22.2 pg (28.0-32.0); Mean Corpuscular Volume 69.5 fL (80.0-100.0); Monocytes % (auto) 5.8 % (0.0-12.0); Neutrophils # (auto) 15.8 10 ^3/uL (1.6-8.6); Platelet Count (auto) 295 10^3/uL (140-450); Red Blood Cells 6.03 10^6/uL (4.0-5.20); Red Cell Distribution Width 18.9 % (11.8-14.3)
[2020-06-24 16:00] VITALS: BP 155/89
[2020-06-24] MEDS: REMDESIVIR 100 MG in SODIUM CHL 0.9% 250 ML IV SCH (16:13)
[2020-06-24] MEDS: ATORVASTATIN 20 MG TAB PO SCH (21:14)
[2020-06-25] VITALS (16 sets, daily range): BP systolic 121–158; BP diastolic 61–96
[2020-06-25] MEDS: MORPHINE SULF INJ 2 MG/ML SYRINGE 1ML IV PRN ×3 (05:15→20:37)
[2020-06-25] MEDS: GABAPENTIN 300 MG CAP PO SCH ×3 (06:00→22:05)
[2020-06-25] MEDS ORDERED: AMIODARONE 450mg/250ml AE 250 ML IV SCH (06:00)
[2020-06-25] MEDS ORDERED: AMIODARONE 450mg/250ml AE 250 ML IV ONE (06:07)
[2020-06-25] MEDS: ALBUTEROL SULF HFA 90MCG INH 200DOSE IN SCH ×3 (06:46→18:55)
[2020-06-25] MEDS: AMIODARONE HCL 150 MG in D5W 5% 100 ML IV ONE ×2 (06:54→07:20)
[2020-06-25] MEDS: Ensure Enlive Strawberry 8oz Bottle PO SCH ×3 (08:00→18:45)
[2020-06-25] MEDS: FERROUS SULFATE 300 MG/5 ML ORAL LIQ PO SCH ×2 (10:00→22:05)
[2020-06-25] MEDS: DexAMETHasone SOD PHOS 10MG/1ML VIAL INJ IV SCH (11:25)
[2020-06-25] MEDS: cefTRIAXone 1GM/50ML D5W 50 ML IV SCH (11:25)
[2020-06-25] MEDS: FUROSEMIDE 40 MG/4 ML VIAL IV SCH (11:25)
[2020-06-25] MEDS: PANTOPRAZOLE 40 MG TAB PO SCH (11:26)
[2020-06-25] MEDS: MULTIPLE VITAMINS W/ MINERALS TAB PO SCH (11:26)
[2020-06-25] MEDS: amLODIPine BESYLATE 5 MG TAB PO SCH (11:26)
[2020-06-25] MEDS: OXYBUTYNIN CHL 5 MG TAB PO SCH (11:26)
[2020-06-25] MEDS: AZITHROMYCIN 250 MG TAB PO SCH (11:27)
[2020-06-25] MEDS: ENOXAPARIN SOD 60 MG/0.6 ML SYRINGE SC SCH ×2 (11:27→22:06)
[2020-06-25] MEDS: AMIODARONE 450mg/250ml AE 250 ML IV SCH (12:25)
[2020-06-25] MEDS: POTASSIUM CHL 20MEQ/100ML 100 ML IV SCH ×2 (14:45→16:45)
[2020-06-25] MEDS ORDERED: ACETAMINOPHEN 650 MG RECT SUPP PR PRN (18:30)
[2020-06-25] MEDS ORDERED: ACETAMINOPHEN 325 MG TAB PO PRN (18:45)
[2020-06-25] MEDS: ATORVASTATIN 20 MG TAB PO SCH (22:05)
[2020-06-25] MEDS: LORazepam 0.5 MG TAB PO PRN (23:52)
[2020-06-26] VITALS: BP 140/85
[2020-06-26] MEDS: MORPHINE SULF INJ 2 MG/ML SYRINGE 1ML IV PRN (03:07)
[2020-06-26] MEDS: AMIODARONE 450mg/250ml AE 250 ML IV SCH ×2 (03:42→17:27)
[2020-06-26] MEDS: GABAPENTIN 300 MG CAP PO SCH ×3 (06:00→21:52)
[2020-06-26] MEDS: Ensure Enlive Strawberry 8oz Bottle PO SCH ×3 (08:00→17:27)
[2020-06-26] MEDS: ALBUTEROL SULF HFA 90MCG INH 200DOSE IN SCH ×3 (08:20→22:00)
[2020-06-26 08:57] VITALS: BP 172/97
[2020-06-26] MEDS: DexAMETHasone SOD PHOS 10MG/1ML VIAL INJ IV SCH (09:58)
[2020-06-26] MEDS: cefTRIAXone 1GM/50ML D5W 50 ML IV SCH (09:58)
[2020-06-26] MEDS: FUROSEMIDE 40 MG/4 ML VIAL IV SCH (09:59)
[2020-06-26] MEDS: AZITHROMYCIN 250 MG TAB PO SCH (10:00)
[2020-06-26] MEDS: amLODIPine BESYLATE 5 MG TAB PO SCH (10:00)
[2020-06-26] MEDS: FERROUS SULFATE 300 MG/5 ML ORAL LIQ PO SCH ×2 (10:00→21:51)
[2020-06-26] MEDS: PANTOPRAZOLE 40 MG TAB PO SCH (10:00)
[2020-06-26] MEDS: MULTIPLE VITAMINS W/ MINERALS TAB PO SCH (10:00)
[2020-06-26] MEDS: OXYBUTYNIN CHL 5 MG TAB PO SCH (10:00)
[2020-06-26] MEDS: ENOXAPARIN SOD 60 MG/0.6 ML SYRINGE SC SCH ×2 (10:01→21:52)
[2020-06-26] MEDS: hydrALAZINE HCL 20 MG/ML VL IV PRN (10:05)
[2020-06-26 10:30] VITALS: BP 119/76
[2020-06-26 10:48] VITALS: BP 119/78
[2020-06-26] MEDS: POTASSIUM CHL 20MEQ/100ML 100 ML IV SCH ×2 (11:08→13:34)
[2020-06-26] MEDS ORDERED: LABETALOL HCL 5 MG/ML 4ML SYRINGE IV PRN (15:45)
[2020-06-26 16:00] VITALS: BP 186/85
[2020-06-26] MEDS: LORazepam 2MG/ML-1ML VIAL IV PRN (16:15)
[2020-06-26] MEDS: AZITHROMYCIN 500MG/ 250ML 250 ML IV SCH (16:16)
[2020-06-26 18:00] VITALS: BP 116/62
[2020-06-26] MEDS: ATORVASTATIN 20 MG TAB PO SCH (21:51)
[2020-06-27] VITALS: BP 136/68
[2020-06-27] MEDS: MORPHINE SULF INJ 2 MG/ML SYRINGE 1ML IV PRN ×2 (00:37→07:00)
[2020-06-27] MEDS: LORazepam 2MG/ML-1ML VIAL IV PRN (04:16)
[2020-06-27] MEDS: GABAPENTIN 300 MG CAP PO SCH ×3 (06:00→22:00)
[2020-06-27] MEDS: ALBUTEROL SULF HFA 90MCG INH 200DOSE IN SCH ×3 (06:00→19:14)
[2020-06-27] MEDS: Ensure Enlive Strawberry 8oz Bottle PO SCH ×3 (08:00→18:00)
[2020-06-27 09:30] VITALS: BP 120/74
[2020-06-27] MEDS: FERROUS SULFATE 300 MG/5 ML ORAL LIQ PO SCH ×2 (10:00→22:00)
[2020-06-27] MEDS: PANTOPRAZOLE 40 MG TAB PO SCH (10:00)
[2020-06-27] MEDS: MULTIPLE VITAMINS W/ MINERALS TAB PO SCH (10:00)
[2020-06-27] MEDS: amLODIPine BESYLATE 5 MG TAB PO SCH (10:00)
[2020-06-27] MEDS: OXYBUTYNIN CHL 5 MG TAB PO SCH (10:00)
[2020-06-27] MEDS: AMIODARONE 450mg/250ml AE 250 ML IV SCH (10:17)
[2020-06-27] MEDS: FUROSEMIDE 40 MG/4 ML VIAL IV SCH (10:20)
[2020-06-27] MEDS: ENOXAPARIN SOD 60 MG/0.6 ML SYRINGE SC SCH ×2 (10:20→22:00)
[2020-06-27] MEDS: DexAMETHasone SOD PHOS 10MG/1ML VIAL INJ IV SCH (10:20)
[2020-06-27] MEDS: cefTRIAXone 1GM/50ML D5W 50 ML IV SCH (11:30)
[2020-06-27] MEDS: AZITHROMYCIN 500MG/ 250ML 250 ML IV SCH (12:05)
[2020-06-27] MEDS: METOPROLOL SUCCINATE XL 50 MG TAB PO SCH (14:30)
[2020-06-27] MEDS ORDERED: DIGOXIN (250MCG/ML) 2 ML AMPULE IV ONE (14:30)
[2020-06-27 16:00] VITALS: BP 155/77
[2020-06-27] MEDS ORDERED: AMIODARONE 450mg/250ml AE 250 ML IV SCH (17:30)
[2020-06-27] MEDS: ATORVASTATIN 20 MG TAB PO SCH (22:00)
[2020-06-28] VITALS: BP 133/76
[2020-06-28] MEDS: GABAPENTIN 300 MG CAP PO SCH (06:00)
[2020-06-28] MEDS: ALBUTEROL SULF HFA 90MCG INH 200DOSE IN SCH (06:00)
[2020-06-28 08:00] VITALS: BP 98/54
[2020-06-28] MEDS: Ensure Enlive Strawberry 8oz Bottle PO SCH ×2 (08:00→12:00)
[2020-06-28] MEDS: FERROUS SULFATE 300 MG/5 ML ORAL LIQ PO SCH (10:00)
[2020-06-28] MEDS: AZITHROMYCIN 500MG/ 250ML 250 ML IV SCH (10:00)
[2020-06-28] MEDS: PANTOPRAZOLE 40 MG TAB PO SCH (10:00)
[2020-06-28] MEDS: METOPROLOL SUCCINATE XL 50 MG TAB PO SCH (10:00)
[2020-06-28] MEDS: MULTIPLE VITAMINS W/ MINERALS TAB PO SCH (10:00)
[2020-06-28] MEDS: OXYBUTYNIN CHL 5 MG TAB PO SCH (10:00)
[2020-06-28] MEDS: cefTRIAXone 1GM/50ML D5W 50 ML IV SCH (10:07)
[2020-06-28] MEDS: DexAMETHasone SOD PHOS 10MG/1ML VIAL INJ IV SCH (10:07)
[2020-06-28] MEDS: FUROSEMIDE 40 MG/4 ML VIAL IV SCH (10:07)
[2020-06-28] MEDS: ENOXAPARIN SOD 60 MG/0.6 ML SYRINGE SC SCH (10:09)
== END 2020-06-28 22:46 | DRG 177 ==
LOC: ER 14:17 → EDBD 14:17 → TELE 14:18 → TELE-EAST 06-17 23:14
PROVIDERS: ADMIT Hospitalist; ATTEND Internal Medicine
PROC: XW033E5 Introduction of Remdesivir Anti-infective into Peripheral Vein, Percutaneous Approach, New Technology Group 5 (ICD-10-PCS; 2020-06-20)
PROC: 5A09457 Assistance with Respiratory Ventilation, 24-96 Consecutive Hours, Continuous Positive Airway Pressure (ICD-10-PCS; principal; 2020-06-26)
DX: U07.1 COVID-19 (principal); J96.01 Acute respiratory failure with hypoxia; G93.41 Metabolic encephalopathy; J12.82 Pneumonia due to coronavirus disease 2019; I16.9 Hypertensive crisis, unspecified; N39.0 Urinary tract infection, site not specified; J81.1 Chronic pulmonary edema; Z68.1 Body mass index [BMI] 19.9 or less, adult; I69.354 Hemiplegia and hemiparesis following cerebral infarction affecting left non-dominant side; E44.1 Mild protein-calorie malnutrition; Z66 Do not resuscitate; F01.50 Vascular dementia, unspecified severity, without behavioral disturbance, psychotic disturbance, mood disturbance, and anxiety; E87.6 Hypokalemia; I10 Essential (primary) hypertension; H91.10 Presbycusis, unspecified ear; R29.6 Repeated falls; E78.5 Hyperlipidemia, unspecified; D63.8 Anemia in other chronic diseases classified elsewhere; G43.909 Migraine, unspecified, not intractable, without status migrainosus; R53.81 Other malaise; D50.9 Iron deficiency anemia, unspecified; M19.90 Unspecified osteoarthritis, unspecified site; R32 Unspecified urinary incontinence; I48.0 Paroxysmal atrial fibrillation; G62.9 Polyneuropathy, unspecified; K21.9 Gastro-esophageal reflux disease without esophagitis; S42.002D Fracture of unspecified part of left clavicle, subsequent encounter for fracture with routine healing; Z99.3 Dependence on wheelchair; Z90.49 Acquired absence of other specified parts of digestive tract; Z90.710 Acquired absence of both cervix and uterus; Z82.3 Family history of stroke; Z82.49 Family history of ischemic heart disease and other diseases of the circulatory system
CPT/HCPCS: 36415; 36600; 70450; 71045; 72192; 73030; 80048; 80053; 80061; 80076; 82728; 82805; 83036; 83540; 83550; 83880; 84443; 84484; 85007; 85025; 85027; 85379; 85610; 85730; 86141; 87040; 87081; 87426; 92610; 93005; 93306; 94640; 94660; 96365; 97110; 97530; G0378; J0696; J1100; J3480; J3490; J7060; Q0162